=== PATIENT | female | born 1990 | race African-American/Black ===

== ENCOUNTER 2016-11-28 15:27 | Emergency (ER) | payer MEDICAID ==
[~2016-11-28] VITALS: Ht 165.1 cm; Wt 86.2 kg
[~2016-11-28 15:27] MED LIST: ALBUTEROL SULF8.5 GM INH; ALBUTEROL2.5 MG/3 M INH; AZITHROMYCIN250 MG ORAL; DIFLUCAN100 MG ORAL; IBUPROFEN600 MG ORAL; NITROFURANTOIN100 M2 ORAL; NKM; PREDNISONE20 MG ORAL; PROMETHAZINE-D118 ML ORAL; TRAMADOL HCL50 MG ORAL
[2016-11-28] MEDS ORDERED: AMOXICILLIN500 MG ORAL (16:14)
[2016-11-28] MEDS ORDERED: PROMETHAZINE-D118 ML ORAL (16:16)
[2016-11-28 16:26] VITALS: BP 109/74
--- NOTE | 2016-11-28 21:50 | Emergency Room Report ---
History of Present Illness General Chief Complaint: Upper Respiratory Illness Source: Patient Present Illness HPI The pt is a 25 yo F presenting for 2 weeks of productive cough, subjective fever , and chest pain which occurs with coughing only. The pt states sputum is yellow /green. The pt states the pain is an 8/10 dull ache and occurs only with coughing. Pain does not radiate. The pt denies sick contacts or recent travel. Pt denies any other symptoms including N, V, chills, SOB, wheezing, numbness/ tingling Allergies: Coded Allergies: No Known Allergies (Unverified , 05/17/14) Patient History Past Medical History: see triage record Pertinent Family History: none Last Menstrual Period: 09/28/16 Now: No Reviewed Nursing Documentation: PMH: Agreed, PSxH: Agreed Nursing Documentation-PMH Past Medical History: No History, Except For Hx Asthma: Yes Review of Systems All Other Systems: negative except mentioned in HPI Physical Exam Vital Signs Date Time Temp Pulse Resp B/P Pulse Ox O2 Delivery O2 Flow Rate FiO2 11/28/16 15:39 98.1 97 16 102/70 100 Room Air Sp02 EP Interpretation: reviewed, normal General Appearance: no apparent distress, alert, GCS 15, non-toxic Head: normocephalic, atraumatic Eyes: bilateral eye PERRL, bilateral eye normal inspection ENT: tonsillar swelling, pharyngeal erythema, tonsillar exudate Neck: full range of motion, supple/symm/no masses Respiratory: chest non-tender, lungs clear, normal breath sounds, no wheezing, speaking full sentences Cardiovascular #1: regular rate, rhythm, no edema Genitourinary: normal inspection, no CVA tenderness Musculoskeletal: back normal, gait/station normal, normal range of motion, non- tender Neurologic: alert, oriented x3, responsive, motor strength/tone normal, sensory intact, speech normal Psychiatric: judgement/insight normal, memory normal, mood/affect normal, no suicidal/homicidal ideation Skin: normal color, no rash, warm/dry, well hydrated Lymphatic: adenopathy - cervical Medical Decision Making PA Attestation Dr. Randolph is my supervising physician. Patient management was discussed with my supervising physician Diagnostic Impression: Primary Impression: Pharyngitis, acute ER Course The pt is a 25 yo F presenting for 2 weeks of productive cough, subjective fever Differential diagnosis include but not limited to pharyngitis, sinusitis, AOM, bronchitis, PNA Physical exam: Vitals within normal limits. Afebrile. No apparent distress HEENT exam: There is bilateral tonsillar edema, erythema, and exudate. Uvula midline. Moist mucous membranes. There is bilateral cervical lymphadenopathy. Lungs are clear to auscultation bilaterally Skin is warm and dry. No rash The patient will be discharged home with a prescription for cough medication and amoxicillin and is given ER precautions. Patient will followup with primary care Last Vital Signs Date Time Temp Pulse Resp B/P Pulse Ox O2 Delivery O2 Flow Rate FiO2 11/28/16 16:26 95 14 109/74 99 Room Air 11/28/16 16:26 97.7 Status: improved Disposition: HOME, SELF-CARE Condition: Improved Scripts D-Methorphan Hb/Prometh Hcl* (PROMETHAZINE-DM SYRUP*) 118 Ml Syrup 5 ML ORAL Q6H Y for For Cough, #118 ML 0 Refills Prov: IDANIA SERNA 11/28/16 Amoxicillin* (AMOXIL*) 500 Mg Capsule 500 MG ORAL Q12HR, #20 CAP Prov: IDANIA SERNA.A. 11/28/16 Referrals: NON PHYSICIAN (PCP) Patient Instructions: Upper Respiratory Infection, Adult Additional Instructions: I discussed my findings with the patient. All questions and concerns have been answered. Treatment and medication compliance have been addressed. I advised the patient that they need to follow up with PMD in 3-5 days. Return to ED if pain remains or worsens, cough worsens or remains, you notice blood in your sputum, you notice wheezing, you experience a fever, or if needed for any reason. Patient verbalized understanding of discharge instructions. IDANIA SERNA Nov 28, 2016 21:50
== END 2016-11-28 16:26 | disposition home or self-care (01) ==
LOC: EMR 16:10
DX: J02.9 Acute pharyngitis, unspecified (principal); J45.909 Unspecified asthma, uncomplicated
CPT/HCPCS: 99284

== ENCOUNTER 2017-02-13 15:54 | Emergency (ER) | payer MEDICAID ==
[~2017-02-13] VITALS: Ht 165.1 cm; Wt 86.6 kg
[~2017-02-13 15:54] MED LIST changes: +AMOXICILLIN500 MG ORAL
[2017-02-13 16:10] VITALS: BP 99/56
[2017-02-13] MEDS ORDERED: PredniSONE 20mg tab ORAL ONE (16:15)
[2017-02-13] MEDS ORDERED: Ipratropium 0.02% Inh Soln 2.5ml UD HHN ONE (16:15)
[2017-02-13] MEDS ORDERED: Albuterol ud Inhalation HHN ONE (16:15)
[2017-02-13] MEDS ORDERED: ALBUTEROL2.5 MG/3 M INH (16:56)
[2017-02-13] MEDS ORDERED: TESSALON PERLE100 MG ORAL (16:56)
[2017-02-13] MEDS ORDERED: PREDNISONE20 MG ORAL (16:56)
[2017-02-13] MEDS ORDERED: IBUPROFEN600 MG ORAL (16:56)
[2017-02-13 17:15] VITALS: BP 121/52
--- NOTE | 2017-02-13 21:34 | Emergency Room Report ---
History of Present Illness General Chief Complaint: Dyspnea/Respdistress Source: Patient Present Illness HPI The patient is a 26-year-old female with a history of asthma presenting for shortness of breath, cough, chest pain, and back pain for the past week. Pain only occurs with coughing. She has tried albuterol at home which has not helped. Pain is a 10 out of 10 dull ache with cough and does not radiate. She denies recent travel or sick contacts. She denies any other symptoms including fever, chills, productive cough, rash Allergies: Coded Allergies: No Known Allergies (Unverified , 05/17/14) Patient History Past Medical History: see triage record Pertinent Family History: none Last Menstrual Period: 01/18/17 Now: No Reviewed Nursing Documentation: PMH: Agreed, PSxH: Agreed Nursing Documentation-PMH Hx Asthma: Yes Review of Systems All Other Systems: negative except mentioned in HPI Physical Exam Vital Signs Date Time Temp Pulse Resp B/P Pulse Ox O2 Delivery O2 Flow Rate FiO2 02/13/17 16:04 97.9 86 15 100/72 100 Room Air Sp02 EP Interpretation: reviewed, normal General Appearance: no apparent distress, alert, GCS 15, non-toxic Head: normocephalic, atraumatic Eyes: bilateral eye PERRL, bilateral eye normal inspection ENT: hearing grossly normal, normal pharynx, no angioedema, normal voice, uvula midline Neck: full range of motion, supple/symm/no masses Respiratory: chest non-tender, no respiratory distress, no accessory muscle use , decreased breath sounds, wheezing - diffuse Cardiovascular #1: regular rate, rhythm, no edema Gastrointestinal: normal bowel sounds, non tender, soft, non-distended, no guarding, no rebound Musculoskeletal: back normal, gait/station normal, normal range of motion, non- tender Neurologic: alert, oriented x3, responsive, motor strength/tone normal, sensory intact, speech normal Psychiatric: judgement/insight normal, memory normal, mood/affect normal, no suicidal/homicidal ideation Skin: normal color, no rash, warm/dry, well hydrated Lymphatic: no adenopathy Medical Decision Making PA Attestation Dr. reaves is my supervising physician. Patient management was discussed with my supervising physician Diagnostic Impression: Primary Impression: Asthma Qualified Codes: J45.901 - Unspecified asthma with (acute) exacerbation ER Course The patient is a 26-year-old female with a history of asthma presenting for wheezing and shortness of breath Differential diagnoses considered but not limited to: Asthma exacerbation, bronchitis, pneumonia, anxiety PE: O2 sat 100% on RA. No resp distress. Afebrile HEENT exam is unremarkable Lungs: Decreased breath sounds and diffuse wheezing The patient is given a breathing treatment and steroids in the emergency department and is feeling better. Lung sounds have improved She'll be discharged home with a prescription for prednisone, albuterol, and cough medication. ER precautions given Last Vital Signs Date Time Temp Pulse Resp B/P Pulse Ox O2 Delivery O2 Flow Rate FiO2 02/13/17 17:15 106 28 121/52 100 02/13/17 16:28 Room Air 02/13/17 16:10 98.5 Status: improved Disposition: HOME, SELF-CARE Condition: Improved Scripts Ibuprofen* (MOTRIN*) 600 Mg Tablet 600 MG ORAL Q8H Y for For Pain, #30 TAB 0 Refills Prov: IDANIA SERNA P.A. 02/13/17 Benzonatate* (TESSALON PERLE*) 100 Mg Capsule 100 MG ORAL THREE TIMES A DAY, #15 PERLE Prov: TERZIANIDANIA P.A. 02/13/17 Albuterol Sulfate* (ALBUTEROL SULFATE HHN*) 2.5 Mg/3 Ml Vial.neb 3 ML INH Q6H Y for Shortness of Breath, #30 EA 0 Refills Prov: TERZIAN,IDANIA P.A. 02/13/17 Prednisone* (PREDNISONE*) 20 Mg Tablet 40 MG ORAL DAILY, #10 TAB Prov: TERZIANIDANIA P.A. 02/13/17 Referrals: NON PHYSICIAN (PCP) Patient Instructions: Asthma, Adult, Asthma Attack Prevention Additional Instructions: I discussed my findings with the patient. All questions and concerns have been answered. Treatment and medication compliance have been addressed. I advised the patient that they need to follow up with PMD in 3-5 days. Return to ED if symptoms worsen, new symptoms arise, or if needed for any reason. Patient verbalized understanding of discharge instructions. IDANIA SERNA Feb 13, 2017 21:34
== END 2017-02-13 17:15 | disposition home or self-care (01) ==
LOC: EMR 16:15
DX: J45.901 Unspecified asthma with (acute) exacerbation (principal)
CPT/HCPCS: 94640; 94664; 99284

== ENCOUNTER 2017-05-16 15:06 | Emergency (ER) | payer MEDICAID ==
[~2017-05-16] VITALS: Ht 167.6 cm; Wt 86.2 kg
[~2017-05-16 15:06] MED LIST changes: +TESSALON PERLE100 MG ORAL
[2017-05-16 16:17] LABS: BASOPHILS % (AUTO) 0.7 % (0.0-2.0); LYMPHOCYTES % (AUTO) 31.1 % (20.0-45.0); MEAN CORPUSCULAR HEMOGLOBIN 30.4 PG (27.0-31.0); MEAN CORPUSCULAR HGB CONC 34.6 G/DL (32.0-36.0); MEAN CORPUSCULAR VOLUME 88 FL (80-99); MEAN PLATELET VOLUME 11.7 FL (6.5-10.1); MONOCYTES % (AUTO) 4.2 % (1.0-10.0); PLATELET COUNT 227 K/UL (150-450); RED BLOOD COUNT 4.19 M/UL (4.20-5.40); RED CELL DISTRIBUTION WIDTH 12.8 % (11.6-14.8); WHITE BLOOD COUNT 10.8 K/UL (4.8-10.8)
[2017-05-16 16:32] LABS: ALANINE AMINOTRANSFERASE 13 U/L (3-33); ANION GAP 12 (5-15); ASPARTATE AMINO TRANSFERASE 28 U/L (5-40); CALCIUM 8.7 mg/dL (8.6-10.2); CARBON DIOXIDE 21 mEQ/L (20-30); CHLORIDE 104 mEQ/L (98-107); CREATININE 0.8 mg/dL (0.5-0.9); GLOMERULAR FILTRATION RATE > 60 mL/min (>60); HEMOLYSIS 337; POTASSIUM 5.7 mEQ/L (3.4-4.9); SODIUM 137 mEQ/L (135-145); TOTAL PROTEIN 7.2 g/dL (6.6-8.7)
[2017-05-16 16:33] LABS: APPEARANCE,URINE CLEAR; KETONES,URINE NEGATIVE (NEGATIVE); LEUKOCYTE ESTERASE ,URINE NEGATIVE (NEGATIVE); NITRITE,URINE NEGATIVE (NEGATIVE); PH,URINE 8 (4.5-8.0); PROTEIN,URINE NEGATIVE (NEGATIVE); UROBILINOGEN,URINE NORMAL MG/DL (0.0-1.0)
--- NOTE | 2017-05-16 16:37 | Diagnostic Imaging Report ---
Indication: Dizziness Technique: Contiguous 5 mm thick transaxial imaging of the head obtained in a Siemens Sensation [address] scanner. Soft tissue and bone windows generated. Total Dose length Product (DLP): [address] Dose Index Volume (CTDIvol): 70.38, 0.15 mGy Comparison: none Findings: The size and configuration of the cortical sulci, basal cisterns, and ventricles are within normal limits for age. There is no mass effect, midline shift, or edema identified. There is no evidence of acute hemorrhage or abnormal intra-axial or extra-axial fluid collections. The bones and soft tissues are unremarkable. Impression: No mass effect, edema or acute bleed. The CT scanner at [facility] is accredited by the [employer] and the scans are performed using dose optimization techniques as appropriate to a performed exam including Automatic Exposure control.
[2017-05-16] MEDS ORDERED: Albuterol ud Inhalation HHN ONE (16:45)
[2017-05-16 17:45] VITALS: BP 108/68
[2017-05-16 18:25] LABS: ANION GAP 15 (5-15); CALCIUM 8.2 mg/dL (8.6-10.2); CARBON DIOXIDE 19 mEQ/L (20-30); CHLORIDE 105 mEQ/L (98-107); CREATININE 0.8 mg/dL (0.5-0.9); GLOMERULAR FILTRATION RATE > 60 mL/min (>60); HEMOLYSIS 8; POTASSIUM 3.2 mEQ/L (3.4-4.9); SODIUM 139 mEQ/L (135-145)
[2017-05-16] MEDS ORDERED: CORTISPORIN EAR10 ML RIGHT EAR (18:48)
[2017-05-16] MEDS ORDERED: IBUPROFEN600 MG ORAL (18:48)
[2017-05-16 18:52] VITALS: BP 108/68
--- NOTE | 2017-05-16 21:05 | Emergency Room Report ---
History of Present Illness General Chief Complaint: Dizziness Source: Patient Present Illness HPI The patient is a 26-year-old female with a history of asthma presenting for 2 weeks of dizziness. She states that one week prior, she felt faint and fell to the ground and lost consciousness. She is unsure of how long she was unconscious for. She is not sure she hit her head. She states that she has not been seen for this. This began for no known reason. She describes this as intermittent feelings as if the room is spinning. She also describes right ear pain described as an 8/10 dull ache and is worse with touch. She denies any discharge from the ear. She denies other symptoms including fever, chills, neck pain or stiffness, chest pain, shortness of breath, nausea, vomiting, rash Allergies: Coded Allergies: No Known Allergies (Unverified , 05/17/14) Patient History Past Medical History: see triage record Pertinent Family History: none Last Menstrual Period: 04/20/2017 Now: No Reviewed Nursing Documentation: PMH: Agreed, PSxH: Agreed Nursing Documentation-PMH Hx Asthma: Yes Review of Systems All Other Systems: negative except mentioned in HPI Physical Exam Vital Signs Date Time Temp Pulse Resp B/P (MAP) Pulse Ox O2 Delivery O2 Flow Rate FiO2 05/16/17 15:16 97.3 75 110/74 100 Room Air 05/16/17 16:55 20 Sp02 EP Interpretation: reviewed, normal General Appearance: no apparent distress, alert, GCS 15, non-toxic Head: normocephalic, atraumatic Eyes: bilateral eye normal inspection, bilateral eye PERRL ENT: hearing grossly normal, normal pharynx, no angioedema, normal voice, other - R EAC edema and erythema with TTP to tragus Neck: full range of motion, supple/symm/no masses Respiratory: chest non-tender, lungs clear, normal breath sounds, speaking full sentences Cardiovascular #1: regular rate, rhythm, no edema Gastrointestinal: normal bowel sounds, non tender, soft, non-distended, no guarding, no rebound Genitourinary: normal inspection, no CVA tenderness Musculoskeletal: back normal, gait/station normal, normal range of motion, non- tender Neurologic: alert, oriented x3, responsive, motor strength/tone normal, sensory intact, speech normal Psychiatric: judgement/insight normal, memory normal, mood/affect normal, no suicidal/homicidal ideation Skin: normal color, no rash, warm/dry, well hydrated Lymphatic: no adenopathy Medical Decision Making PA Attestation Dr. Randolph is my supervising physician. Patient management was discussed with my supervising physician Diagnostic Impression: Primary Impression: Hyperkalemia Additional Impression: Otitis externa Qualified Codes: H60.501 - Unspecified acute noninfective otitis externa, right ear ER Course The patient is a 26-year-old female with a history of asthma presenting for 2 weeks of dizziness. Differential diagnoses include but not limited to Migraine, Dehydration, arrhythmia, depression, BPPV, otitis media, otitis externa, electrolyte imbalance, among others Physical exam: afebrile. No apparent distress Head is normocephalic atraumatic. HEENT exam reveals right external auditory canal edema and exudate with tenderness over the tragus. No cervical lymphadenopathy. No nystagmus. Lungs are clear to auscultation bilaterally RRR Skin is warm and dry. Normal turgor Labs are unremarkable except for isolated hyperkalemia at 5.7 which was said to be not hemolyzed. CT head unremarkable. The patient is given albuterol nebulizer and BMP shows significant decrease of potassium. The patient will be treated for otitis externa and needs to follow up with primary doctor. ER precautions are given Laboratory Tests Test 05/16/17 15:45 05/16/17 17:45 White Blood Count 10.8 K/UL (4.8-10.8) Red Blood Count 4.19 M/UL (4.20-5.40) L Hemoglobin 12.7 G/DL (12.0-16.0) Hematocrit 36.7 % (37.0-47.0) L Mean Corpuscular Volume 88 FL (80-99) Mean Corpuscular Hemoglobin 30.4 PG (27.0-31.0) Mean Corpuscular Hemoglobin Concent 34.6 G/DL (32.0-36.0) Red Cell Distribution Width 12.8 % (11.6-14.8) Platelet Count 227 K/UL (150-450) Mean Platelet Volume 11.7 FL (6.5-10.1) H Neutrophils (%) (Auto) 62.0 % (45.0-75.0) Lymphocytes (%) (Auto) 31.1 % (20.0-45.0) Monocytes (%) (Auto) 4.2 % (1.0-10.0) Eosinophils (%) (Auto) 2.0 % (0.0-3.0) Basophils (%) (Auto) 0.7 % (0.0-2.0) Urine Color Pale yellow Urine Appearance Clear Urine pH 8 (4.5-8.0) Urine Specific [place] 1.010 (1.005-1.035) Urine Protein Negative (NEGATIVE) Urine Glucose (UA) Negative (NEGATIVE) Urine Ketones Negative (NEGATIVE) Urine Occult Blood Negative (NEGATIVE) Urine Nitrite Negative (NEGATIVE) Urine Bilirubin Negative (NEGATIVE) Urine Urobilinogen Normal MG/DL (0.0-1.0) Urine Leukocyte Esterase Negative (NEGATIVE) Urine HCG, Qualitative Negative Sodium Level 137 mEQ/L (135-145) 139 mEQ/L (135-145) Potassium Level 5.7 mEQ/L (3.4-4.9) H 3.2 mEQ/L (3.4-4.9) L Chloride Level 104 mEQ/L (98-107) 105 mEQ/L (98-107) Carbon Dioxide Level 21 mEQ/L (20-30) 19 mEQ/L (20-30) L Anion Gap 12 (5-15) 15 (5-15) Blood Urea Nitrogen 13 mg/dL (7-23) 14 mg/dL (7-23) Creatinine 0.8 mg/dL (0.5-0.9) 0.8 mg/dL (0.5-0.9) Estimate Glomerular Filtration Rate > 60 mL/min (>60) > 60 mL/min (>60) Glucose Level 87 mg/dL (74-106) 94 mg/dL (74-106) Calcium Level 8.7 mg/dL (8.6-10.2) 8.2 mg/dL (8.6-10.2) L Total Bilirubin 0.2 mg/dL (0.0-1.2) Aspartate Amino Transferase (AST) 28 U/L (5-40) Alanine Aminotransferase (ALT) 13 U/L (3-33) Alkaline Phosphatase 44 U/L (35-104) Total Protein 7.2 g/dL (6.6-8.7) Albumin 3.7 g/dL (3.5-5.2) Globulin 3.5 g/dL Albumin/Globulin Ratio 1.0 (1.0-2.7) Lab Results Impression All labs unremarkable except for potassium of 5.7 EKG Diagnostic Results EP Interpretation: NSR. No peaked T waves Rate: normal - 64 Rhythm: NSR ST Segments: no acute changes ASA given to the pt in ED: No PA Scribe Text EKG was reviewed and read with my supervising physician. No acute ST segment changes are seen. Normal rate and rhythm. No acute changes. CT/MRI/US Diagnostic Results CT/MRI/US Diagnostic Results : Imaging Test Ordered: CT head Impression Unremarkable Last Vital Signs Date Time Temp Pulse Resp B/P (MAP) Pulse Ox O2 Delivery O2 Flow Rate FiO2 05/16/17 18:52 86 16 108/68 96 Room Air 05/16/17 17:45 97.8 Status: improved Disposition: HOME, SELF-CARE Condition: Improved Scripts Ibuprofen* (MOTRIN*) 600 Mg Tablet 600 MG ORAL Q8H Y for For Pain, #30 TAB 0 Refills Prov: IDANIA SERNAAManish 05/16/17 Neomycin/Polymyxin B Sulf/Hc* (CORTISPORIN EAR SOLUTION*) 10 Ml Solution 4 DROP RIGHT EAR QID, #10 ML 0 Refills Prov: IDANIA SERNA.A. 05/16/17 Patient Instructions: Otitis Externa, Hyperkalemia Additional Instructions: I discussed my findings with the patient. All questions and concerns have been answered. Treatment and medication compliance have been addressed. I advised the patient that they need to follow up with PMD in 3-5 days. Return to ED if symptoms worsen, new symptoms arise, or if needed for any reason. Patient verbalized understanding of discharge instructions. IDANIA SERNA May 16, 2017 21:05
--- NOTE | 2017-05-19 18:44 | Cardiology Report ---
APPROVED REPORT EKG Measurement Heart [id number] Normal sinus rhythm Normal ECG
== END 2017-05-16 18:52 | disposition home or self-care (01) ==
LOC: EMR 15:27
DX: E87.5 Hyperkalemia (principal); H60.91 Unspecified otitis externa, right ear; R42 Dizziness and giddiness; J45.909 Unspecified asthma, uncomplicated
CPT/HCPCS: 36415; 70450; 80048; 80053; 81003; 81025; 85025; 93005; 94640; 94664; 96361; 96374; 99284

== ENCOUNTER 2017-05-26 15:34 | Emergency (ER) | payer MEDICAID ==
[~2017-05-26] VITALS: Ht 167.6 cm; Wt 87.1 kg
[~2017-05-26 15:34] MED LIST changes: +CORTISPORIN EAR10 ML RIGHT EAR
[2017-05-26] MEDS ORDERED: ALBUTEROL SULF8.5 GM INH (16:15)
--- NOTE | 2017-05-26 16:32 | Emergency Room Report ---
History of Present Illness General Chief Complaint: Sore Throat Source: Patient Present Illness HPI 26 YO Female presents to the ED c/o : sore throat with 10/10 in severity pain, tonsillar swelling with fevers x 2 days , Pt. also has had right ear pain x 2 weeks. pt. finished course of otic abx however no relief of her ear symptoms. Denies cough, neck pain or stiffness, rhinorrhea. Denies recent travel or ill contacts. Pt has been taking advil for pain and fevers. denies abdominal pain or rashes. Denies CP, Palpitations, LOC, AMS, dizziness, Changes in Vision, Sensation, paresthesias, or a sudden severe headache. Allergies: Coded Allergies: No Known Allergies (Unverified , 05/17/14) Patient History Past Medical History: see triage record Past Surgical History: none Pertinent Family History: none Last Menstrual Period: "IUD" Now: No Immunizations: UTD Reviewed Nursing Documentation: PMH: Agreed, PSxH: Agreed Nursing Documentation-PMH Hx Asthma: Yes Review of Systems All Other Systems: negative except mentioned in HPI Physical Exam Vital Signs Date Time Temp Pulse Resp B/P (MAP) Pulse Ox O2 Delivery O2 Flow Rate FiO2 05/26/17 16:10 98.2 96 16 108/72 100 Room Air Sp02 EP Interpretation: reviewed, normal General Appearance: alert, GCS 15, non-toxic, mild distress Head: normocephalic, atraumatic Eyes: bilateral eye normal inspection, bilateral eye PERRL ENT: hearing grossly normal, normal pharynx, no angioedema, normal voice, TMs + canals normal - right TM is erythematous and bulging, the canal is WNL, no d/ c no tenderness. , uvula midline, nasal congestion, tonsillar swelling, pharyngeal erythema, tonsillar exudate Neck: full range of motion, no meningismus, supple/symm/no masses Respiratory: lungs clear, normal breath sounds, no wheezing, speaking full sentences Cardiovascular #1: regular rate, rhythm, no edema Gastrointestinal: normal bowel sounds, non tender, soft, no guarding, no rebound Rectal: deferred Genitourinary: normal inspection, no CVA tenderness Musculoskeletal: back normal, gait/station normal, normal range of motion, non- tender Neurologic: alert, oriented x3, responsive, motor strength/tone normal, sensory intact, speech normal Psychiatric: judgement/insight normal, memory normal, mood/affect normal Skin: normal color, no rash, warm/dry, well hydrated Lymphatic: no adenopathy Medical Decision Making PA Attestation Dr. Randolph is my supervising Physician whom patient management has been discussed with. Diagnostic Impression: Primary Impression: Otitis media Qualified Codes: H66.001 - Acute suppurative otitis media without spontaneous rupture of ear drum, right ear Additional Impressions: ACUTE PHARYNGITIS, UNSPECIFIED Pharyngitis, acute Qualified Codes: J02.0 - Streptococcal pharyngitis ER Course 26 YO Female presents to the ED c/o : sore throat with 10/10 in severity pain, tonsillar swelling with fevers x 2 days , Pt. also has had right ear pain x 2 weeks. pt. finished course of otic abx however no relief of her ear symptoms. Denies cough, neck pain or stiffness, rhinorrhea. Denies recent travel or ill contacts. Pt has been taking advil for pain and fevers. denies abdominal pain or rashes. Denies CP, Palpitations, LOC, AMS, dizziness, Changes in Vision, Sensation, paresthesias, or a sudden severe headache. Ddx considered but are not limited to: pharyngitis, strep, [employer], ludwigs angina, URI Vital signs: are WNL, pt. is afebrile H&PE are most consistent with: pharyngitis presumed strep, moderate tonsillar swelling with exudates. with right otitis media. ORDERS: None required at this time as the diagnosis is clinical ED INTERVENTIONS: -Decadron 8mg IM DISCHARGE: At this time pt. is stable for d/c to home. Will provide printed patient care instructions, and any necessary prescriptions. Care plan and follow up instructions have been discussed with the patient prior to discharge. Last Vital Signs Date Time Temp Pulse Resp B/P (MAP) Pulse Ox O2 Delivery O2 Flow Rate FiO2 05/26/17 16:10 98.2 96 16 108/72 100 Room Air Disposition: HOME, SELF-CARE Condition: Stable Scripts Lidocaine HCl 2% Viscous (Lidocaine HCl 2% Viscous) 100 Ml Solution 15 ML ORAL QID, #200 ML Prov: Mariann Vides.AManish 05/26/17 Ibuprofen* (MOTRIN*) 600 Mg Tablet 600 MG ORAL THREE TIMES A DAY, #30 TAB 0 Refills Prov: Mariann Vides 05/26/17 Amoxicillin* (AMOXIL*) 500 Mg Capsule 500 MG ORAL BID for 10 Days, #20 CAP Prov: Mariann Vides 05/26/17 Patient Instructions: Otitis Media, Adult, [id number], Strep Throat, Easy-to- Read Additional Instructions: Take medications as directed. Follow up with a Primary Care Provider in 3-5 days, even if your symptoms have resolved. --Please review list of primary care clinics, if you do not already have a primary care provider Return sooner to ED if new symptoms occur, or current symptoms become worse. - Please note that this Emergency Department Report was dictated using [employer] machinery mechanic technology software, occasionally this can lead to erroneous entry secondary to interpretation by the dictation equipment. Mariann Vides May 26, 2017 16:32
[2017-05-26] MEDS ORDERED: IBUPROFEN600 MG ORAL (16:44)
[2017-05-26] MEDS ORDERED: AMOXICILLIN500 MG ORAL (16:44)
[2017-05-26] MEDS ORDERED: LIDOCAINE VISC100 ML ORAL (16:44)
[2017-05-26] MEDS ORDERED: Dexamethasone 4mg/ml vial IM ONE (16:45)
[2017-05-26 16:58] VITALS: BP 113/76
[2017-05-26 16:59] VITALS: BP 113/76
== END 2017-05-26 16:59 | disposition home or self-care (01) ==
LOC: EMR 16:45
DX: H66.001 Acute suppurative otitis media without spontaneous rupture of ear drum, right ear (principal); J02.9 Acute pharyngitis, unspecified; J02.0 Streptococcal pharyngitis
CPT/HCPCS: 96372; 99284; J1100

== ENCOUNTER 2017-09-01 22:14 | Emergency (ER) | payer MEDICAID ==
[~2017-09-01] VITALS: Ht 165.1 cm; Wt 88.5 kg
[~2017-09-01 22:14] MED LIST changes: +LIDOCAINE VISC100 ML ORAL
[2017-09-01] MEDS ORDERED: Ipratropium 0.02% Inh Soln 2.5ml UD HHN ONE (23:00)
[2017-09-01] MEDS ORDERED: Azithromycin 250mg tab PO ONE (23:00)
[2017-09-01] MEDS: Albuterol ud Inhalation HHN SCH ×2 (23:32→23:36)
--- NOTE | 2017-09-02 00:09 | Emergency Room Report ---
History of Present Illness General Chief Complaint: Upper Respiratory Illness Source: Patient Present Illness HPI Patient with 3 - 4 days of URI and exacerbation of asthma. Fevers. Mildly productive phlegm. No flu vaccination. Chest pain and sore throat = 9/10 - more pleuritic. Moderate CASTRO with wheezing. Use of albuterol at home and taking tylenol to control the fevers - moderately help with pain. Not taking steroids now but has in past. Not worst attack, never intubated. Not . No dysuria. No NVD. Some myalgias and arthralgias. Mild ZHANG. Here with son who is also ill with URI. Allergies: Coded Allergies: Shrimp (Verified Allergy, Unknown, 09/01/17) Patient History Past Medical History: see triage record Social History: Reports: smoking - prior - not now Social History Narrative with son Last Menstrual Period: 08/20/17 Now: No : 1 Para: 1 Nursing Documentation-[facility] Past Medical History: No History, Except For Hx Asthma: Yes Review of Systems All Other Systems: negative except mentioned in HPI Physical Exam Vital Signs Date Time Temp Pulse Resp B/P (MAP) Pulse Ox O2 Delivery O2 Flow Rate FiO2 09/01/17 22:35 98.2 105 14 112/63 98 Room Air 09/01/17 23:20 21 Sp02 EP Interpretation: reviewed, normal General Appearance: no apparent distress, GCS 15, other - looks ill Head: normocephalic Eyes: bilateral eye normal inspection, bilateral eye PERRL ENT: moist mucus membranes, pharyngeal erythema Neck: supple Respiratory: wheezing, expiration Cardiovascular #1: tachycardia Cardiovascular #2: 2+ radial (R) Gastrointestinal: normal inspection, normal bowel sounds, non tender, no mass, non-distended, overweight Musculoskeletal: back normal, gait/station normal, normal range of motion, no calf tenderness Neurologic: alert, oriented x3, grossly normal Psychiatric: mood/affect normal Skin: normal inspection, warm/dry Medical Decision Making Diagnostic Impression: Primary Impression: Asthma Qualified Codes: J45.41 - Moderate persistent asthma with (acute) exacerbation Additional Impression: Bronchitis ER Course Patient with h/o asthma with URI and bronchospasm. DDx: pneumonia, bronchitis, viral URI amongst others. CXR indicated. Also breathing treatment and steroids also indicated. Oral prednisone and antibiotics begun. CXR without infiltrate. Patient improved with treatment. Patient stable for outpatient observation and treatment. Chest X-Ray Diagnostic Results Chest X-Ray Diagnostic Results : Chest X-Ray Ordered: Yes # of Views/Limited/Complete: 1 View Indication: Shortness of Breath Interpretation: no consolidation, no effusion, no pneumothorax, no acute cardiopulmonary disease Impression: No acute disease Electronically Signed by: Electronically signed by Rangel Tineo MD Last Vital Signs Date Time Temp Pulse Resp B/P (MAP) Pulse Ox O2 Delivery O2 Flow Rate FiO2 09/02/17 00:40 97.4 102 18 144/98 100 Room Air 21 Status: improved Disposition: HOME, SELF-CARE Condition: Improved Scripts Acetaminophen (Tylenol) 325 Mg Tablet 650 MG ORAL Q6H Y for Prn Pain/Headache/Temp > 101, #20 TAB 0 Refills Prov: Rangel Tineo M.D. 09/02/17 Prednisone* (PREDNISONE*) 20 Mg Tablet 40 MG ORAL DAILY, #10 TAB Prov: Rangel Tineo M.D. 09/02/17 Albuterol Sulfate* (ALBUTEROL SULFATE HHN*) 2.5 Mg/3 Ml Vial.neb 2.5 MG HHN Q4H Y for Shortness of Breath, #25 VIAL 2 Refills Prov: Rangel Tineo M.D. 09/02/17 Albuterol Sulfate* (ALBUTEROL SULFATE MDI*) 8.5 Gm Hfa.aer.ad 2 PUFF INH Q6H, #1 EA 1 Refill Prov: Rangel Tineo M.D. 09/02/17 Azithromycin* (ZITHROMAX*) 250 Mg Tablet 250 MG ORAL 2 first day then 1qd, #6 TAB 0 Refills Take two tables once daily for 1 day, then one tablet once daily for 4 days. Prov: Rangel Tineo M.D. 09/02/17 Referrals: NON PHYSICIAN (PCP) Rangel Tineo M.D. Sep 02, 2017 00:09
[2017-09-02] MEDS ORDERED: PREDNISONE20 MG ORAL (00:12)
[2017-09-02] MEDS ORDERED: ALBUTEROL SULF8.5 GM INH (00:12)
[2017-09-02] MEDS ORDERED: ZITHROMAX250 MG ORAL (00:12)
[2017-09-02] MEDS ORDERED: TYLENOL325 MG ORAL (00:12)
[2017-09-02] MEDS ORDERED: ALBUTEROL2.5 MG/3 M HHN (00:12)
[2017-09-02 00:32] VITALS: BP 144/98
[2017-09-02 00:40] VITALS: BP 144/98
--- NOTE | 2017-09-02 12:15 | Diagnostic Imaging Report ---
Indication: Dyspnea Comparison: 05/17/2014 A single view chest radiograph was obtained. Findings: Cardiomediastinal appearance is within normal limits for age. Pulmonary vascularity is appropriate. The diaphragmatic contour is smooth and costophrenic angles are sharp. No pleural effusions are identified. The bones are unremarkable. Impression: No acute findings
== END 2017-09-02 00:40 | disposition home or self-care (01) ==
LOC: EMR 23:16
DX: J45.901 Unspecified asthma with (acute) exacerbation (principal); Z91.013 Allergy to seafood; Z87.891 Personal history of nicotine dependence
CPT/HCPCS: 71010; 94640; 94664; 99284; J7512; Q0144

== ENCOUNTER 2017-10-23 14:22 | Emergency (ER) | payer MEDICAID ==
[~2017-10-23] VITALS: Ht 165.1 cm; Wt 97.5 kg
[~2017-10-23 14:22] MED LIST changes: +ALBUTEROL2.5 MG/3 M HHN; +TYLENOL325 MG ORAL; +ZITHROMAX250 MG ORAL
[2017-10-23 14:37] VITALS: BP 111/70
[2017-10-23 15:03] VITALS: BP 111/70
--- NOTE | 2017-10-24 14:44 | Emergency Room Report ---
History of Present Illness General Chief Complaint: General Complaint Source: Patient Present Illness Allergies: Coded Allergies: Shrimp (Verified Allergy, Unknown, 09/01/17) Patient History Last Menstrual Period: 10/09/2017 Nursing Documentation-[facility] Past Medical History: No History, Except For Hx Asthma: Yes Physical Exam Vital Signs Date Time Temp Pulse Resp B/P (MAP) Pulse Ox O2 Delivery O2 Flow Rate FiO2 10/23/17 14:37 98.1 99 15 111/70 99 Room Air 98.1 Medical Decision Making Diagnostic Impression: Primary Impression: Problem ER Course Of note, I was NOT on duty at this time, 310pm when patient allegedly left the ED. My shift ended at 230pm. I never saw or evaluated patient. I was never told of this patient during her arrival or stay in ED. Last Vital Signs Date Time Temp Pulse Resp B/P (MAP) Pulse Ox O2 Delivery O2 Flow Rate FiO2 10/23/17 15:03 98.1 99 15 111/70 99 Room Air Disposition: LEFT W/OUT BEING SEEN Condition: Unknown Referrals: NOT CHOSEN [facility]/,REFERRING (PCP) MELLY MCGOWAN M.D. Oct 24, 2017 14:44
== END 2017-10-23 15:10 | disposition left against medical advice (07) ==
LOC: EMR 15:00
DX: Z04.41 Encounter for examination and observation following alleged adult rape (principal); Z53.21 Procedure and treatment not carried out due to patient leaving prior to being seen by health care provider
CPT/HCPCS: 99281

== ENCOUNTER 2018-04-18 03:00 | Emergency (ER) | payer MEDICAID ==
[~2018-04-18] VITALS: Ht 165.1 cm; Wt 108.9 kg
[2018-04-18 03:10] VITALS: BP 120/78
[2018-04-18] MEDS ORDERED: IBUPROFEN600 MG ORAL (03:43)
[2018-04-18] MEDS ORDERED: MUPIROCIN22 GM TOPIC (03:43)
[2018-04-18] MEDS ORDERED: BACTRIM DS TAB1 EAC1 ORAL (03:43)
--- NOTE | 2018-04-18 03:43 | Emergency Room Report ---
History of Present Illness General Chief Complaint: Skin Rash/Abscess Source: Patient Present Illness HPI Is a 19-year-old female with history of asthma. She presents with chief complaint of left forearm pain and swelling. She thought it may have been a spider bite. Onset for the last couple days but worse today. Seemed to be spreading. No spider seen. No fever or chills. Pain is 7 out of 10 pain worse with palpation. No drainage. She also complaining of right lower extremity swelling. Getting tight. Hard time putting her shoe on. His been ongoing for several days also. No injury. No abscess or cellulitis. Non- control. No history or family history of thromboembolic event Allergies: Coded Allergies: Shrimp (Verified Allergy, Unknown, 09/01/17) Patient History Past Medical History: see triage record, old chart reviewed, asthma Past Surgical History: none Pertinent Family History: none Social History: Denies: smoking Last Menstrual Period: March Now: No Immunizations: other Reviewed Nursing Documentation: PMH: Agreed; PSxH: Agreed Nursing Documentation-PMH Hx Asthma: Yes Review of Systems Eye: Denies: eye pain, blurred vision ENT: Denies: ear pain, nose congestion, throat swelling Respiratory: Denies: cough, shortness of breath Cardiovascular: Denies: chest pain, palpitations Gastrointestinal: Denies: abdominal pain, diarrhea, nausea, vomiting Musculoskeletal: Denies: back pain, joint pain Skin: Reports: rash Neurological: Denies: headache, numbness Endocrine: Denies: increased thirst, increased urine Hematologic/Lymphatic: Denies: easy bruising All Other Systems: negative except mentioned in HPI Physical Exam Vital Signs Date Time Temp Pulse Resp B/P (MAP) Pulse Ox O2 Delivery O2 Flow Rate FiO2 04/18/18 03:02 97.6 90 18 118/82 96 Room Air 97.5 vitals normal Sp02 EP Interpretation: reviewed, normal General Appearance: well appearing, no apparent distress, alert Head: normocephalic, atraumatic Eyes: bilateral eye PERRL, bilateral eye EOMI ENT: hearing grossly normal, normal pharynx Neck: full range of motion, supple, no meningismus Respiratory: chest non-tender, lungs clear, normal breath sounds Cardiovascular #1: regular rate, rhythm, no murmur Gastrointestinal: normal bowel sounds, non tender, no mass, no organomegaly, no bruit, non-distended Musculoskeletal: back normal, gait/station normal, normal range of motion, other - Left forearm: She has an area of induration and erythema measuring about 4 x 5 cm. Is a small whitish center. No fluctuant area. Full range of motion the wrist and elbow. Radial pulse normal. Psychiatric: mood/affect normal Skin: warm/dry Medical Decision Making Diagnostic Impression: Primary Impression: Cellulitis of forearm, left ER Course Patient with cellulitis of the left forearm. I suspect this may be early MRSA infection. No necrotizing fasciitis. No abscess. I cleaned the skin with Betadine and then local anesthetic with 1% lidocaine. I made a small 1 cm incision. There was no pus expressed. Patient tolerated procedure without a problem. CT/MRI/US Diagnostic Results CT/MRI/US Diagnostic Results : Imaging Test Ordered: RLE US Impression Neg per forms analysis manager Last Vital Signs Date Time Temp Pulse Resp B/P (MAP) Pulse Ox O2 Delivery O2 Flow Rate FiO2 04/18/18 03:10 97.5 78 18 120/78 97 Room Air 97.5 Status: improved Disposition: HOME, SELF-CARE Condition: Stable Scripts Mupirocin* (MUPIROCIN*) 22 Gm Oint...g. 1 APPLIC TOPIC THREE TIMES A DAY, #22 GM Prov: FARHAN QUEEN M.D. 04/18/18 Ibuprofen* (MOTRIN*) 600 Mg Tablet 600 MG ORAL THREE TIMES A DAY, #30 TAB 0 Refills Prov: FARHAN QUEEN M.D. 04/18/18 Trimethoprim/Sulfamethoxazole 160/800* (BACTRIM DS TABLET*) 1 Each Tablet 1 TAB ORAL Q12H, #14 TAB 0 Refills Prov: FARHAN QUEEN M.D. 04/18/18 Referrals: NOT CHOSEN [facility]/,REFERRING (PCP) Additional Instructions: Follow-up with your doctor in 2-3 days for recheck. Return if symptom worsen. FARHAN QUEEN M.D. Apr 18, 2018 03:43
[2018-04-18] MEDS ORDERED: Bactrim-DS 1 tab ORAL ONE (03:45)
[2018-04-18 04:50] VITALS: BP 121/75
--- NOTE | 2018-04-22 23:40 | Diagnostic Imaging Report ---
APPROVED REPORT CPT Code: 41334 Present Symptoms Comments: RIGHT LEG PAIN. RIGHT LEG: Venous imaging reveals a patent deep venous system. There is no evidence of thrombus within the femoral, popliteal or tibial segments. The greater saphenous vein is also within normal limits. Doppler indicates normal spontaneous flow within these segments.
== END 2018-04-18 04:50 | disposition home or self-care (01) ==
LOC: EMR 03:27
DX: L03.114 Cellulitis of left upper limb (principal); J45.909 Unspecified asthma, uncomplicated; Z91.013 Allergy to seafood
CPT/HCPCS: 93971; 99284

== ENCOUNTER 2018-04-23 12:39 | Emergency (ER) | payer MEDICAID ==
[~2018-04-23] VITALS: Ht 165.1 cm; Wt 95.3 kg
[~2018-04-23 12:39] MED LIST changes: +BACTRIM DS TAB1 EAC1 ORAL; +MUPIROCIN22 GM TOPIC
[2018-04-23 12:58] VITALS: BP 100/63
--- NOTE | 2018-04-23 13:10 | Emergency Room Report ---
History of Present Illness General Chief Complaint: Skin Rash/Abscess Source: Patient Present Illness HPI 27-year-old female patient presents ER complaining of vomiting and diarrhea for the past 2 days. Reports she was previously seen at the ER a week ago for cellulitis and treated with Bactrim, denies symptoms since that time, reports cellulitis is healing well. Reports that diarrhea has been watery, denies blood in emesis or stool. Denies contacts with similar symptoms. Denies recent travel outside the states. Denies fever, chest pain, shortness of breath. States does not know status. Denies dysuria, hematuria, vaginal discharge.reports allergy to shrimp, states that she ate shrimp prior to arrival at the ER, denies new foods in diet. Reports that does not require to carry an EpiPen for allergy to shrimp, states he usually gets tongue and throat itchiness. Denies tongue swelling. Allergies: Coded Allergies: Shrimp (Verified Allergy, Unknown, 09/01/17) Patient History Past Medical History: see triage record Now: No Reviewed Nursing Documentation: PMH: Agreed; PSxH: Agreed Nursing Documentation-[facility] Past Medical History: No History, Except For Hx Asthma: Yes Review of Systems All Other Systems: negative except mentioned in HPI Physical Exam Vital Signs Date Time Temp Pulse Resp B/P (MAP) Pulse Ox O2 Delivery O2 Flow Rate FiO2 04/23/18 12:48 98.0 107 20 100/63 98 Room Air 98.1 Sp02 EP Interpretation: reviewed, normal General Appearance: well appearing, no apparent distress, alert, GCS 15, non- toxic Head: normocephalic, atraumatic Eyes: bilateral eye normal inspection, bilateral eye PERRL ENT: hearing grossly normal, normal pharynx, no angioedema, normal voice, TMs + canals normal, uvula midline, moist mucus membranes, other - no tongue swelling, speaking full sentences Neck: full range of motion Respiratory: lungs clear, normal breath sounds, no rhonchi, no respiratory distress, no accessory muscle use, no wheezing, speaking full sentences Cardiovascular #1: regular rate, rhythm, no edema Gastrointestinal: non tender, soft, no mass, non-distended, no guarding, no rebound, other - negative Reyes, negative Rovsing, negative obturator Genitourinary: no CVA tenderness Musculoskeletal: back normal, digits/nails normal, gait/station normal, normal range of motion, non-tender Psychiatric: mood/affect normal Skin: no rash, other - 2 mm scab noted at previous site of cellulitis, no signs of infection, no erythema or edema, no no red streaking Lymphatic: no adenopathy Medical Decision Making PA Attestation Dr. Batres is my supervising Physician whom patient management has been discussed with. Diagnostic Impression: Primary Impression: Vomiting and diarrhea ER Course Pt. presents to the ED c/o vomiting and diarrhea. Ddx considered but are not limited to viral syndrome, gastritis, enteritis, food poisoning, GERD, reflux., UTI. Vital signs: are WNL, pt. is afebrile, pulse mildly elevated, we will continue to monitor. Ordered medication. ED COURSE: Physical exam benign, no abdominal TTP, negative Reyes sign, negative Rovsing, negative obturator, low suspicion for appendicitis or cholecystitis, does not require labs or imaging at this time. No fever, no blood in stool, no recent travel or hospitalizations, does not require abx treatment at this time. No signs of dehydration, moist mucus membranes, cap refill <2seconds, normal skin turgor. no rash, no signs of cellulitis, not require further treatment antibiotics. Followup with primary care provider. provided with Pepcid for possible allergic reaction symptoms. Reviewed previous patient chart, reviewed area previous cellulitis, appears to be healing well, no signs of erythema or edema, does not require antibiotics at this time. Apply warm compresses. Benadryl for itching symptoms, side effect drowsiness. UA negative, urine negative, low suspicion for UTI, discuss results with patient, does not require antibiotic treatment at this time. Likely viral etiology of symptoms, will provide Zofran in the ER. . Patient instructed on BRAT diet. Patient instructed to remain hydrated, drink plenty of fluids. Patient questions asked and answered. Patient states understanding and agreement to treatment plan. ER precautions given, return to ER for new or worsening of symptoms. patient resting comfortably in bed, in no acute distress, nontoxic appearing. vital stable. Did not eat foods that he was allergic to. Follow with primary care provider and discuss referral to ad operations specialist. DISCHARGE: Rx provided for Benadryl. SE drowsiness, do not take prior to drinking, driving , operating heavy machinery. At this time pt. is stable for d/c to home. Patient is resting comfortably, laughing, in no acute distress, nontoxic appearing. Will provide printed patient care instructions, and any necessary prescriptions. Care plan and follow up instructions have been discussed with the patient prior to discharge. Patient instructed to followup with PCP in 3-5 days. Patient reports understanding and agreement to treatment plan. Patient questions asked and answered. ER precautions given; patient instructed to return to ER for new or worsening of symptoms including but not limited to fever, intractable vomiting, severe abdominal pain, blood in stool. - Please note that this Emergency Department Report was dictated using [employer] language teacher technology software, occasionally this can lead to erroneous entry secondary to interpretation by the dictation equipment. Labs Test 04/23/18 13:20 Urine Color Pale yellow Urine Appearance Slightly cloudy Urine pH 5 (4.5-8.0) Urine Specific [place] 1.020 (1.005-1.035) Urine Protein Negative (NEGATIVE) Urine Glucose (UA) Negative (NEGATIVE) Urine Ketones 1+ (NEGATIVE) Urine Occult Blood 2+ (NEGATIVE) Urine Nitrite Negative (NEGATIVE) Urine Bilirubin Negative (NEGATIVE) Urine Urobilinogen Normal MG/DL (0.0-1.0) Urine Leukocyte Esterase 1+ (NEGATIVE) Urine RBC 5-10 /HPF (0 - 2) Urine WBC 2-4 /HPF (0 - 2) Urine Squamous Epithelial Cells Many /LPF (NONE/OCC) Urine Bacteria Few /HPF (NONE) Urine HCG, Qualitative Negative (NEGATIVE) Last Vital Signs Date Time Temp Pulse Resp B/P (MAP) Pulse Ox O2 Delivery O2 Flow Rate FiO2 04/23/18 12:58 98.1 20 100/63 98 Room Air 98.1 04/23/18 12:48 107 Disposition: HOME, SELF-CARE Condition: Stable Scripts Diphenhydramine Hcl* (BENADRYL*) 25 Mg Capsule 25 MG ORAL QHS, #30 CAP Prov: Clarence Isaacs 04/23/18 Patient Instructions: Diarrhea, Adult, Wyve-xo-Tvlv, Food Allergy, Kznm-kp-Vfum , Nausea and Vomiting, Adult, Gwnq-sb-[id number], Viral Gastroenteritis, Adult, Easy- to-Read Additional Instructions: Followup with primary care provider in 3 -5 days. Avoid spicy foods, avoid dairy foods. BRAT diet: bananas, rice, apple sauce, toast. Take medications as directed. Patient questions asked and answered. ER precautions given, patient instructed to return to ER immediately for any new or worsening of symptoms. Clarence Isaacs Apr 23, 2018 13:10
[2018-04-23 13:47] LABS: APPEARANCE,URINE SLIGHTLY CLOUDY; BILIRUBIN, URINE NEGATIVE (NEGATIVE); COLOR,URINE PALE YELLOW; GLUCOSE, URINE (UA) NEGATIVE (NEGATIVE); KETONES,URINE 1+ (NEGATIVE); LEUKOCYTE ESTERASE ,URINE 1+ (NEGATIVE); NITRITE,URINE NEGATIVE (NEGATIVE); PH,URINE 5 (4.5-8.0); PROTEIN,URINE NEGATIVE (NEGATIVE); UROBILINOGEN,URINE NORMAL MG/DL (0.0-1.0)
[2018-04-23] MEDS ORDERED: BENADRYL25 MG ORAL (14:27)
[2018-04-23 14:35] VITALS: BP 107/72
== END 2018-04-23 14:35 | disposition home or self-care (01) ==
LOC: EMR 13:21
DX: R11.10 Vomiting, unspecified (principal); R19.7 Diarrhea, unspecified; Z91.013 Allergy to seafood; J45.909 Unspecified asthma, uncomplicated; R21 Rash and other nonspecific skin eruption
CPT/HCPCS: 81003; 81025; 99283

== ENCOUNTER 2018-10-20 22:11 | Emergency (ER) | payer MEDICAID ==
[~2018-10-20] VITALS: Ht 167.6 cm; Wt 99.8 kg
[~2018-10-20 22:11] MED LIST changes: +BENADRYL25 MG ORAL
--- NOTE | 2018-10-20 22:25 | NUR ---
ED Nurse Note: PT WALKED IN DUE TO STOMACH PAIN SINCE LAST NIGHT 10/19/18, PT STATES SHE HAS A LOT OF LUMPS ON HER STOMACH. AO4. NAD. VSS
[2018-10-20] MEDS ORDERED: NKM (22:26)
--- NOTE | 2018-10-20 22:42 | Emergency Room Report ---
History of Present Illness General Chief Complaint: Abdominal Pain Source: Patient Present Illness HPI This is a 27-year-old female with a history of recurrent abdominal pain which he says secondary to fibroid. She presents with chief complaint abdominal pain for the last few days. She has chronic diarrhea for over a month. She has pain mostly upper quadrant area. Has nausea and vomiting. No fever or chills. Pain is sharp and crampy. No relief with kgmz-gck-uwgfeeb medicine. Denies any other complaint. Nothing made it better. Palpation made it worse. Allergies: Coded Allergies: Shrimp (Verified Allergy, Unknown, 09/01/17) Patient History Past Medical History: see triage record, old chart reviewed Past Surgical History: none Pertinent Family History: none Social History: Denies: smoking Last Menstrual Period: Sep Now: No - UNSURE Immunizations: other Reviewed Nursing Documentation: PMH: Agreed; PSxH: Agreed Nursing Documentation-PMH Hx Asthma: Yes Hx Neurological Problems: Yes - FIBROIDS Review of Systems Eye: Denies: eye pain, blurred vision ENT: Denies: ear pain, nose congestion, throat swelling Respiratory: Denies: cough, shortness of breath Cardiovascular: Denies: chest pain, palpitations Gastrointestinal: Reports: abdominal pain, diarrhea, nausea, vomiting Musculoskeletal: Denies: back pain, joint pain Skin: Denies: rash Neurological: Denies: headache, numbness Endocrine: Denies: increased thirst, increased urine Hematologic/Lymphatic: Denies: easy bruising All Other Systems: negative except mentioned in HPI Physical Exam Vital Signs Date Time Temp Pulse Resp B/P (MAP) Pulse Ox O2 Delivery O2 Flow Rate FiO2 10/20/18 22:21 97.7 79 18 111/66 96 Room Air vitals normal Sp02 EP Interpretation: reviewed, normal General Appearance: well appearing, no apparent distress, alert Head: normocephalic, atraumatic Eyes: bilateral eye PERRL, bilateral eye EOMI ENT: hearing grossly normal, normal pharynx Neck: full range of motion, supple, no meningismus Respiratory: chest non-tender, lungs clear, normal breath sounds Cardiovascular #1: regular rate, rhythm, no murmur Gastrointestinal: normal bowel sounds, no mass, no organomegaly, no bruit, non- distended, tenderness - Diffuse Musculoskeletal: back normal, gait/station normal, normal range of motion Psychiatric: mood/affect normal Skin: warm/dry Medical Decision Making Diagnostic Impression: Primary Impression: Abdominal pain Qualified Codes: R10.84 - Generalized abdominal pain Additional Impressions: Constipation Qualified Codes: K59.00 - Constipation, unspecified Fibroid ER Course Patient presents with exacerbation of chronic abdominal pain. No evidence of acute abdomen or obstruction. No evidence of any hernia. We'll discharge home. Lab Results Impression labs unremarkabl CT/MRI/US Diagnostic Results CT/MRI/US Diagnostic Results : Imaging Test Ordered: CT abdomen and pelvis Impression Read by radiologist. Constipation. Fibroid. Last Vital Signs Date Time Temp Pulse Resp B/P (MAP) Pulse Ox O2 Delivery O2 Flow Rate FiO2 10/20/18 22:21 97.7 79 18 111/66 96 Room Air Status: improved Disposition: HOME, SELF-CARE Condition: Stable Scripts Lactulose (LACTULOSE*) 20 Gm/30 Ml Solution 30 ML ORAL DAILY, #240 ML 0 Refills Prov: Jimmy Villagomez MD 10/21/18 Ibuprofen* (MOTRIN*) 600 Mg Tablet 600 MG ORAL THREE TIMES A DAY, #30 TAB 0 Refills Prov: Jimmy Villagomez MD 10/21/18 Patient Instructions: Abdominal Pain, Adult Additional Instructions: Follow-up with your doctor in 7 days. Return if symptom worsen. Jimmy Villagomez MD Oct 20, 2018 22:42
[2018-10-20] MEDS ORDERED: HYDROmorphone 1mg/ml Carpuject IVP ONE (22:45)
--- NOTE | 2018-10-20 23:00 | NUR ---
ED Nurse Note: IV access established. Blood and urine collected; sent down to lab.
[2018-10-20 23:29] LABS: EOSINOPHILS % (AUTO) 1.2 % (0.0-3.0); HEMATOCRIT 35.6 % (37.0-47.0); LYMPHOCYTES % (AUTO) 38.5 % (20.0-45.0); MEAN CORPUSCULAR VOLUME 85 FL (80-99); MONOCYTES % (AUTO) 6.4 % (1.0-10.0); NEUTROPHILS % (AUTO) 52.9 % (45.0-75.0); PLATELET COUNT 226 K/UL (150-450); RED BLOOD COUNT 4.21 M/UL (4.20-5.40); RED CELL DISTRIBUTION WIDTH 13.6 % (11.6-14.8); WHITE BLOOD COUNT 10.5 K/UL (4.8-10.8)
[2018-10-20 23:31] LABS: BILIRUBIN, URINE NEGATIVE (NEGATIVE); GLUCOSE, URINE (UA) NEGATIVE (NEGATIVE); KETONES,URINE NEGATIVE (NEGATIVE); LEUKOCYTE ESTERASE ,URINE 1+ (NEGATIVE); NITRITE,URINE NEGATIVE (NEGATIVE); PH,URINE 7 (4.5-8.0); PROTEIN,URINE 1+ (NEGATIVE); UROBILINOGEN,URINE NORMAL MG/DL (0.0-1.0)
[2018-10-20 23:33] LABS: COLOR,URINE YELLOW
[2018-10-20 23:34] LABS: APPEARANCE,URINE SLIGHTLY CLOUDY
[2018-10-20 23:36] LABS: ANION GAP 10 mmol/L (5-15); BLOOD UREA NITROGEN 12 mg/dL (7-18); CALCIUM 8.7 MG/DL (8.5-10.1); CARBON DIOXIDE 23 MMOL/L (21-32); CHLORIDE 104 MMOL/L (98-107); CREATININE 0.9 MG/DL (0.55-1.30); POTASSIUM 3.9 MMOL/L (3.5-5.1); SODIUM 137 MMOL/L (136-145)
[2018-10-20 23:40] LABS: ALANINE AMINOTRANSFERASE 20 U/L (12-78); ALBUMIN 3.5 G/DL (3.4-5.0); ALBUMIN/GLOBULIN RATIO 0.8 (1.0-2.7); ALKALINE PHOSPHATASE 68 U/L (46-116); ASPARTATE AMINO TRANSFERASE 16 U/L (15-37); BILIRUBIN,TOTAL 0.1 MG/DL (0.2-1.0)
--- NOTE | 2018-10-20 23:43 | NUR ---
ED Nurse Note: Patient down to imaging.
--- NOTE | 2018-10-20 23:59 | NUR ---
ED Nurse Note: Pt back from imaging.
[2018-10-21] VITALS: BP 111/66
[2018-10-21] MEDS ORDERED: Ketorolac 30mg Inj IV ONE (01:00)
[2018-10-21] MEDS ORDERED: IBUPROFEN600 MG ORAL (01:03)
[2018-10-21] MEDS ORDERED: LACTULOSE20 GM/301 ORAL (01:03)
[2018-10-21 01:10] VITALS: BP 111/66
--- NOTE | 2018-10-21 01:10 | NUR ---
ED Nurse Note: Patient cleared for discharge per ERMD. NAD. VSS. Accompanied by significant other. Patient given prescriptions and discharge instructions; verbalized understanding. IV and ID band removed. Patient ambulated steady with all personal belongings.
--- NOTE | 2018-10-21 09:15 | Diagnostic Imaging Report ---
Indication: Abdominal pain for 3 days Technique: Spiral acquisitions obtained through the abdomen and pelvis. No oral contrast utilized, per emergency room physician request No IV contrast utilized, per emergency room physician request.. Multiplanar reconstructions were generated. Total dose length product 1102.92 mGycm. CTDIvol(s) 18.84 mGy. Dose reduction achieved using automated exposure control Comparison: None Findings: The appendix is normal. No evidence of diverticulosis or diverticulitis. No small bowel distention. No free or loculated intraperitoneal gas or fluid is evident. Distal esophagus, stomach, duodenum are unremarkable. Lack of IV contrast limits assessment of the solid organs. The liver, gallbladder, bile ducts, pancreas, spleen, adrenals, kidneys are all unremarkable. No renal or ureteral calculi, hydronephrosis, or hydroureter. The uterus is diffusely enlarged, demonstrates multiple masses. The right ovary is enlarged, demonstrates a 5 cm cyst. The left ovary is unremarkable Included lung bases demonstrate posterior dependent atelectatic changes. The bones are unremarkable Impression: No acute abnormality 5 cm right ovarian cyst. Recommend further follow-up with pelvic and endovaginal ultrasound Enlarged fibroid uterus This agrees with the preliminary interpretation provided overnight by [facility] telerad[facility] service. The CT scanner at [facility] is accredited by the [employer] and the scans are performed using protocols designed to limit radiation exposure to as low as reasonably achievable to attain images of sufficient resolution adequate for diagnostic evaluation.
== END 2018-10-21 01:10 | disposition home or self-care (01) ==
LOC: EMR 23:00
DX: R10.9 Unspecified abdominal pain (principal); K59.00 Constipation, unspecified; D25.9 Leiomyoma of uterus, unspecified; R19.7 Diarrhea, unspecified; R11.2 Nausea with vomiting, unspecified; N83.201 Unspecified ovarian cyst, right side
CPT/HCPCS: 36415; 74176; 80053; 80307; 81003; 81025; 83690; 85025; 87086; 96361; 96374; 96375; 99284; J1170; J1885; J2405

== ENCOUNTER 2019-02-11 07:47 | Emergency (ER) | payer MEDICAID ==
[~2019-02-11] VITALS: Ht 167.6 cm; Wt 90.7 kg
[~2019-02-11 07:47] MED LIST changes: +LACTULOSE20 GM/301 ORAL
[2019-02-11] MEDS ORDERED: ADVAIR 100-501 EACH INH (07:55)
[2019-02-11] MEDS ORDERED: VENTOLIN HFA18 GM INH (07:55)
--- NOTE | 2019-02-11 08:10 | Emergency Room Report ---
History of Present Illness General Chief Complaint: Nausea, Vomiting, and Diarrhea Source: Patient Present Illness HPI Patient presents with nausea vomiting diarrhea and abdominal pain that began yesterday. She some lettuce that she believes may have been contaminated. She denies any documented fevers or chills. The pain is constant and rated 10/10 at this time. It's left upper quadrant and left lower quadrant with some radiation to the flank. She does complain about dysuria also. The diarrhea is green in color and there is occasional specks of blood in it. She's not vomiting blood about unable to keep down any medication at this time. Patient is on her menstruation at this time. It's normal for her. She doesn't believe she is . Patient denies any upper respiratory symptoms, chest pain, shortness of breath, ankle edema or calf pain. Patient has a history of asthma but denies wheezing at this time. Allergies: Coded Allergies: Shrimp (Verified Allergy, Unknown, 09/01/17) Patient History Past Medical History: see triage record Social History: Denies: smoking Social History Narrative brought by family member Now: No Reviewed Nursing Documentation: PMH: Agreed; PSxH: Agreed Nursing Documentation-PMH Hx Asthma: Yes Hx Neurological Problems: Yes - FIBROIDS Review of Systems All Other Systems: negative except mentioned in HPI Physical Exam Vital Signs Date Time Temp Pulse Resp B/P (MAP) Pulse Ox O2 Delivery O2 Flow Rate FiO2 02/11/19 07:52 99.0 101 24 115/75 (88) 99 Room Air Sp02 EP Interpretation: reviewed, normal General Appearance: well appearing, GCS 15, non-toxic, mild distress - In pain Head: normocephalic Eyes: bilateral eye normal inspection, bilateral eye PERRL ENT: moist mucus membranes Neck: supple Respiratory: lungs clear, normal breath sounds Cardiovascular #1: regular rate, rhythm Cardiovascular #2: 2+ radial (R) Gastrointestinal: normal inspection, normal bowel sounds, no mass, non- distended, no guarding, no rebound, tenderness - Left-sided abdomen Genitourinary: no CVA tenderness Musculoskeletal: back normal, gait/station normal, normal range of motion Neurologic: alert, oriented x3, grossly normal Psychiatric: mood/affect normal Skin: normal inspection, warm/dry Medical Decision Making Diagnostic Impression: Primary Impression: Gastroenteritis ER Course Patient presents with nausea vomiting diarrhea for 2 days. Differential includes gastroenteritis, food poisoning, bacterial gastroenteritis, pyelonephritis, UTI amongst others. Patient will be evaluated with labs. The pineal labs imaging may be ordered. In addition the patient will receive IV hydration, Pepcid, Reglan, Benadryl and morphine. Patient will need repeated abdominal exams. Labs with normal CBC, CMP, lipase and coags. Urinalysis too numerous to count red cells and few white cells. Patient tolerated oral intake and reports decreased pain. On exam abdomen is soft but she still feels some tenderness. Rocephin given for possible UTI. Will await cultures for further treatment. Most likely contamination with menstrual blood. Discussed observation at home. No further studies indicated at this time. Patient stable for outpatient observation and treatment. Laboratory Tests Test 02/11/19 08:19 White Blood Count 8.8 K/UL (4.8-10.8) Red Blood Count 4.47 M/UL (4.20-5.40) Hemoglobin 12.4 G/DL (12.0-16.0) Hematocrit 37.6 % (37.0-47.0) Mean Corpuscular Volume 84 FL (80-99) Mean Corpuscular Hemoglobin 27.7 PG (27.0-31.0) Mean Corpuscular Hemoglobin Concent 33.0 G/DL (32.0-36.0) Red Cell Distribution Width 14.1 % (11.6-14.8) Platelet Count 234 K/UL (150-450) Mean Platelet Volume 10.5 FL (6.5-10.1) H Neutrophils (%) (Auto) % (45.0-75.0) Lymphocytes (%) (Auto) % (20.0-45.0) Monocytes (%) (Auto) % (1.0-10.0) Eosinophils (%) (Auto) % (0.0-3.0) Basophils (%) (Auto) % (0.0-2.0) Differential Total Cells Counted 100 Neutrophils % (Manual) 87 % (45-75) H Lymphocytes % (Manual) 11 % (20-45) L Monocytes % (Manual) 2 % (1-10) Eosinophils % (Manual) 0 % (0-3) Basophils % (Manual) 0 % (0-2) Band Neutrophils 0 % (0-8) Platelet Estimate Adequate Platelet Morphology Normal Red Blood Cell Morphology Normal Prothrombin Time 10.7 SEC (9.30-11.50) Prothrombin Time INR 1.0 (0.9-1.1) PTT 29 SEC (23-33) Urine Color Red Urine Appearance Very cloudy Urine pH 8 (4.5-8.0) Urine Specific [place] 1.010 (1.005-1.035) Urine Protein 3+ (NEGATIVE) H Urine Glucose (UA) Negative (NEGATIVE) Urine Ketones Negative (NEGATIVE) Urine Blood 5+ (NEGATIVE) H Urine Nitrite Negative (NEGATIVE) Urine Bilirubin Negative (NEGATIVE) Urine Urobilinogen Normal MG/DL (0.0-1.0) Urine Leukocyte Esterase 3+ (NEGATIVE) H Urine RBC Tntc /HPF (0 - 2) H Urine WBC 5-10 /HPF (0 - 2) H Urine Squamous Epithelial Cells Few /LPF (NONE/OCC) Urine Bacteria Few /HPF (NONE) Urine HCG, Qualitative Negative (NEGATIVE) Sodium Level 139 MMOL/L (136-145) Potassium Level 3.3 MMOL/L (3.5-5.1) L Chloride Level 107 MMOL/L (98-107) Carbon Dioxide Level 19 MMOL/L (21-32) L Anion Gap 14 mmol/L (5-15) Blood Urea Nitrogen 12 mg/dL (7-18) Creatinine 0.8 MG/DL (0.55-1.30) Estimate Glomerular Filtration Rate > 60 mL/min (>60) Glucose Level 99 MG/DL (74-106) Calcium Level 9.0 MG/DL (8.5-10.1) Total Bilirubin 0.4 MG/DL (0.2-1.0) Aspartate Amino Transferase (AST) 20 U/L (15-37) Alanine Aminotransferase (ALT) 23 U/L (12-78) Alkaline Phosphatase 55 U/L (46-116) Total Protein 7.9 G/DL (6.4-8.2) Albumin 3.5 G/DL (3.4-5.0) Globulin 4.4 g/dL Albumin/Globulin Ratio 0.8 (1.0-2.7) L Lipase 87 U/L (73-393) Last Vital Signs Date Time Temp Pulse Resp B/P (MAP) Pulse Ox O2 Delivery O2 Flow Rate FiO2 02/11/19 13:00 98.9 100 24 115/75 99 Room Air Status: improved Disposition: HOME, SELF-CARE Condition: Improved Scripts Tramadol Hcl* (ULTRAM*) 50 Mg Tablet 50 MG ORAL Q6H PRN for For Pain, #8 TAB 0 Refills Prov: Rangel Tineo MD 02/11/19 Ondansetron Odt* (ZOFRAN ODT*) 4 Mg Tab.rapdis 4 MG BC EVERY 8 HOURS PRN for Nausea & Vomiting, #6 TAB 1 Refill Prov: Rangel Tineo MD 02/11/19 Rangel Tineo MD Feb 11, 2019 08:10
[2019-02-11] MEDS ORDERED: DiphenhydrAMINE 50mg/ml Inj IVP ONE (08:15)
[2019-02-11] MEDS ORDERED: Morphine Sulfate 4mg/ml Inj (IV USE ONLY) IVP ONE (08:15)
[2019-02-11] MEDS ORDERED: Metoclopramide 10mg/2ml Inj IVP ONE (08:15)
[2019-02-11 08:19] VITALS: BP 115/75
[2019-02-11 08:33] LABS: HEMATOCRIT 37.6 % (37.0-47.0); HEMOGLOBIN 12.4 G/DL (12.0-16.0); MEAN CORPUSCULAR VOLUME 84 FL (80-99); PLATELET COUNT 234 K/UL (150-450); RED BLOOD COUNT 4.47 M/UL (4.20-5.40); RED CELL DISTRIBUTION WIDTH 14.1 % (11.6-14.8); WHITE BLOOD COUNT 8.8 K/UL (4.8-10.8)
[2019-02-11 08:35] LABS: APPEARANCE,URINE VERY CLOUDY; BILIRUBIN, URINE NEGATIVE (NEGATIVE); GLUCOSE, URINE (UA) NEGATIVE (NEGATIVE); KETONES,URINE NEGATIVE (NEGATIVE); LEUKOCYTE ESTERASE ,URINE 3+ (NEGATIVE); NITRITE,URINE NEGATIVE (NEGATIVE); PH,URINE 8 (4.5-8.0); PROTEIN,URINE 3+ (NEGATIVE); UROBILINOGEN,URINE NORMAL MG/DL (0.0-1.0)
[2019-02-11 08:39] LABS: ANION GAP 14 mmol/L (5-15); BLOOD UREA NITROGEN 12 mg/dL (7-18); CARBON DIOXIDE 19 MMOL/L (21-32); CHLORIDE 107 MMOL/L (98-107); COLOR,URINE RED; CREATININE 0.8 MG/DL (0.55-1.30); POTASSIUM 3.3 MMOL/L (3.5-5.1); SODIUM 139 MMOL/L (136-145)
[2019-02-11 08:44] LABS: ALANINE AMINOTRANSFERASE 23 U/L (12-78); ALBUMIN 3.5 G/DL (3.4-5.0); ALBUMIN/GLOBULIN RATIO 0.8 (1.0-2.7); ALKALINE PHOSPHATASE 55 U/L (46-116); ASPARTATE AMINO TRANSFERASE 20 U/L (15-37); BILIRUBIN,TOTAL 0.4 MG/DL (0.2-1.0)
[2019-02-11] MEDS ORDERED: cefTRIAXone 1 GM in NS 55 ML IVPB ONE (10:30)
[2019-02-11] MEDS ORDERED: ONDANSETRON ODT4 MG BC (12:58)
[2019-02-11] MEDS ORDERED: TRAMADOL HCL50 MG ORAL (12:58)
[2019-02-11 13:00] VITALS: BP 115/75
== END 2019-02-11 13:00 | disposition home or self-care (01) ==
LOC: EMR 08:08
DX: K52.9 Noninfective gastroenteritis and colitis, unspecified (principal); J45.909 Unspecified asthma, uncomplicated; Z91.013 Allergy to seafood
CPT/HCPCS: 36415; 80053; 81003; 81025; 83690; 85007; 85025; 85610; 85730; 96361; 96365; 96375; 99284; J0696; J1200; J2270; J2765; S0028

== ENCOUNTER 2019-05-05 22:48 | Emergency (ER) | payer MEDICAID ==
[~2019-05-05] VITALS: Ht 167.6 cm; Wt 95.3 kg
[~2019-05-05 22:48] MED LIST changes: +ADVAIR 100-501 EACH INH; +ONDANSETRON ODT4 MG BC; +VENTOLIN HFA18 GM INH
[2019-05-05 22:52] VITALS: BP 131/88
--- NOTE | 2019-05-05 22:52 | NUR ---
ED Nurse Note: Walk-in patient presents with general complaints of not feeling well, reports decreased energy, sporadic cough, diarrhea and nausea. Will continue to monitor and service orders.
[2019-05-05] MEDS ORDERED: DiphenhydrAMINE 50mg/ml Inj IVP ONE (23:15)
[2019-05-05] MEDS ORDERED: D5NS 1,000 ML IV ONE (23:15)
[2019-05-05 23:27] LABS: BASOPHILS % (AUTO) 0.8 % (0.0-2.0); EOSINOPHILS % (AUTO) 2.2 % (0.0-3.0); HEMATOCRIT 35.3 % (37.0-47.0); HEMOGLOBIN 11.5 G/DL (12.0-16.0); LYMPHOCYTES % (AUTO) 35.2 % (20.0-45.0); MEAN CORPUSCULAR VOLUME 85 FL (80-99); MONOCYTES % (AUTO) 6.4 % (1.0-10.0); NEUTROPHILS % (AUTO) 55.5 % (45.0-75.0); PLATELET COUNT 264 K/UL (150-450); RED BLOOD COUNT 4.15 M/UL (4.20-5.40); RED CELL DISTRIBUTION WIDTH 13.1 % (11.6-14.8); WHITE BLOOD COUNT 10.8 K/UL (4.8-10.8)
[2019-05-05 23:30] LABS: APPEARANCE,URINE CLEAR; BILIRUBIN, URINE NEGATIVE (NEGATIVE); COLOR,URINE PALE YELLOW; GLUCOSE, URINE (UA) NEGATIVE (NEGATIVE); KETONES,URINE NEGATIVE (NEGATIVE); LEUKOCYTE ESTERASE ,URINE 2+ (NEGATIVE); NITRITE,URINE NEGATIVE (NEGATIVE); PH,URINE 8 (4.5-8.0); PROTEIN,URINE NEGATIVE (NEGATIVE); UROBILINOGEN,URINE NORMAL MG/DL (0.0-1.0)
--- NOTE | 2019-05-05 23:38 | NUR ---
ED Nurse Note: Patient tolerated IV start and lab draw well, urine collected, medication rendered and fluids hung. Patient is resting with boyfriend at bedside. Will continue to monitor.
[2019-05-05 23:50] LABS: ANION GAP 11 mmol/L (5-15); BLOOD UREA NITROGEN 14 mg/dL (7-18); CALCIUM 8.8 MG/DL (8.5-10.1); CARBON DIOXIDE 23 MMOL/L (21-32); CHLORIDE 109 MMOL/L (98-107); CREATININE 0.9 MG/DL (0.55-1.30); POTASSIUM 3.8 MMOL/L (3.5-5.1); SODIUM 143 MMOL/L (136-145)
[2019-05-05 23:52] LABS: ALANINE AMINOTRANSFERASE 16 U/L (12-78); ALBUMIN 3.4 G/DL (3.4-5.0); ALBUMIN/GLOBULIN RATIO 0.8 (1.0-2.7); ALKALINE PHOSPHATASE 69 U/L (46-116); ASPARTATE AMINO TRANSFERASE 11 U/L (15-37); BILIRUBIN,TOTAL 0.2 MG/DL (0.2-1.0)
[2019-05-06] MEDS ORDERED: ZOFRAN4 MG ORAL (00:20)
[2019-05-06] MEDS ORDERED: DICYCLOMINE HCL10 MG ORAL (00:20)
--- NOTE | 2019-05-06 00:21 | Emergency Room Report ---
History of Present Illness General Chief Complaint: Nausea, Vomiting, and Diarrhea Source: Patient Present Illness HPI 28-year-old female presents with diarrhea, nausea vomiting, crampy abdominal pain x3 days, no aggravating or alleviating factors, symptoms have been constant she has had greater than 2-3 episodes, he denies any chest pain shortness of breath, she states today she stood up suddenly and felt lightheaded. She denies any blood in the vomit or diarrhea. Patient is concerned Allergies: Coded Allergies: Shrimp (Verified Allergy, Unknown, 09/01/17) Patient History Past Medical History: see triage record Last Menstrual Period: 02/17/19 Now: No : 2 Para: 2 Reviewed Nursing Documentation: PMH: Agreed; PSxH: Agreed Nursing Documentation-PMH Past Medical History: No History, Except For Hx Asthma: Yes Hx Neurological Problems: Yes - FIBROIDS Review of Systems All Other Systems: negative except mentioned in HPI Physical Exam Vital Signs Date Time Temp Pulse Resp B/P (MAP) Pulse Ox O2 Delivery O2 Flow Rate FiO2 05/05/19 22:52 98.4 89 18 131/88 (102) 98 Room Air Sp02 EP Interpretation: reviewed, normal General Appearance: well appearing, no apparent distress, alert Head: normocephalic, atraumatic Eyes: bilateral eye PERRL, bilateral eye EOMI ENT: uvula midline, dry mucus membranes Neck: supple, thyroid normal, supple/symm/no masses Respiratory: lungs clear, no respiratory distress, no retraction, no accessory muscle use Cardiovascular #1: normal peripheral pulses, regular rate, rhythm, no edema, no gallop, no murmur Gastrointestinal: non tender, soft, no guarding, no rebound Musculoskeletal: normal inspection Neurologic: alert, oriented x3 Psychiatric: mood/affect normal Skin: no rash, warm/dry Medical Decision Making Diagnostic Impression: Primary Impression: Nausea, vomiting, and diarrhea Additional Impressions: Gastroenteritis Abdominal pain Qualified Codes: R10.84 - Generalized abdominal pain ER Course 28-year-old female presents with acute nausea vomiting and diarrhea, on the differential includes appendicitis diverticulitis, gastroenteritis, patient with soft abdomen nontender no rebound no guarding, patient on exam appears clinically dehydrated with dry mixed membranes, 2 L of fluid were ordered, labs ordered, no acute findings on lab, patient felt better with fluid ministration will provide patient with Zofran. Patient counseled that she must have a bland diet. repeat abdominal exam 12:17 AM, no rebound no guarding. Disposition home with return precautions Laboratory Tests Test 05/05/19 23:03 05/05/19 23:10 Urine Color Pale yellow Urine Appearance Clear Urine pH 8 (4.5-8.0) Urine Specific [place] 1.015 (1.005-1.035) Urine Protein Negative (NEGATIVE) Urine Glucose (UA) Negative (NEGATIVE) Urine Ketones Negative (NEGATIVE) Urine Blood Negative (NEGATIVE) Urine Nitrite Negative (NEGATIVE) Urine Bilirubin Negative (NEGATIVE) Urine Urobilinogen Normal MG/DL (0.0-1.0) Urine Leukocyte Esterase 2+ (NEGATIVE) H Urine RBC 0-2 /HPF (0 - 2) Urine WBC 20-30 /HPF (0 - 2) H Urine Squamous Epithelial Cells Moderate /LPF (NONE/OCC) H Urine Bacteria Few /HPF (NONE) Urine HCG, Qualitative Negative (NEGATIVE) Urine Opiates Screen Negative (NEGATIVE) Urine Barbiturates Screen Negative (NEGATIVE) Phencyclidine (PCP) Screen Negative (NEGATIVE) Urine Amphetamines Screen Negative (NEGATIVE) Urine Benzodiazepines Screen Negative (NEGATIVE) Urine Cocaine Screen Negative (NEGATIVE) Urine Marijuana (THC) Screen Negative (NEGATIVE) White Blood Count 10.8 K/UL (4.8-10.8) Red Blood Count 4.15 M/UL (4.20-5.40) L Hemoglobin 11.5 G/DL (12.0-16.0) L Hematocrit 35.3 % (37.0-47.0) L Mean Corpuscular Volume 85 FL (80-99) Mean Corpuscular Hemoglobin 27.8 PG (27.0-31.0) Mean Corpuscular Hemoglobin Concent 32.7 G/DL (32.0-36.0) Red Cell Distribution Width 13.1 % (11.6-14.8) Platelet Count 264 K/UL (150-450) Mean Platelet Volume 10.1 FL (6.5-10.1) Neutrophils (%) (Auto) 55.5 % (45.0-75.0) Lymphocytes (%) (Auto) 35.2 % (20.0-45.0) Monocytes (%) (Auto) 6.4 % (1.0-10.0) Eosinophils (%) (Auto) 2.2 % (0.0-3.0) Basophils (%) (Auto) 0.8 % (0.0-2.0) Sodium Level 143 MMOL/L (136-145) Potassium Level 3.8 MMOL/L (3.5-5.1) Chloride Level 109 MMOL/L (98-107) H Carbon Dioxide Level 23 MMOL/L (21-32) Anion Gap 11 mmol/L (5-15) Blood Urea Nitrogen 14 mg/dL (7-18) Creatinine 0.9 MG/DL (0.55-1.30) Estimate Glomerular Filtration Rate > 60 mL/min (>60) Glucose Level 105 MG/DL (74-106) Calcium Level 8.8 MG/DL (8.5-10.1) Total Bilirubin 0.2 MG/DL (0.2-1.0) Aspartate Amino Transferase (AST) 11 U/L (15-37) L Alanine Aminotransferase (ALT) 16 U/L (12-78) Alkaline Phosphatase 69 U/L (46-116) Total Protein 7.7 G/DL (6.4-8.2) Albumin 3.4 G/DL (3.4-5.0) Globulin 4.3 g/dL Albumin/Globulin Ratio 0.8 (1.0-2.7) L Lipase 134 U/L (73-393) Human Chorionic Gonadotropin, Quant 1 mIU/mL (1-6) Last Vital Signs Date Time Temp Pulse Resp B/P (MAP) Pulse Ox O2 Delivery O2 Flow Rate FiO2 05/05/19 22:52 98.4 87 18 131/88 98 Room Air Disposition: HOME, SELF-CARE Condition: Stable Scripts Dicyclomine Hcl* (DICYCLOMINE HCL*) 10 Mg Capsule 10 MG ORAL QID, #20 CAP Prov: Alf Mota MD 05/06/19 Ondansetron (Zofran) 4 Mg Tablet 4 MG ORAL Q8H PRN for Nausea & Vomiting, #15 TAB 0 Refills Prov: Alf Mota MD 05/06/19 Referrals: [facility] Patient Instructions: Abdominal Pain, Adult, Viral Gastroenteritis, Adult, Easy -to-Read Additional Instructions: The patient was provided with discharge instructions, notified to follow-up with a primary care doctor and or specialist in the next 24-48 hours, and to return to the ED if they have worsening of their symptoms. Please note that this report is being documented using [employer] technology. This can lead to erroneous entry secondary to incorrect interpretation by the dictating instrument. Alf Mota MD May 06, 2019 00:21
[2019-05-06 00:39] VITALS: BP 128/82
--- NOTE | 2019-05-06 00:39 | NUR ---
ER DISCHARGE NOTE: Patient is cleared to be discharged per ERMD, pt is aox4, on room air, with stable vital signs. pt was given dc and prescription instructions, pt was able to verbalize understanding, pt id band removed without complications. pt is able to ambulate with steady gait. pt took all belongings.
== END 2019-05-06 00:40 | disposition home or self-care (01) ==
LOC: EMR 23:00
DX: K52.9 Noninfective gastroenteritis and colitis, unspecified (principal); J45.909 Unspecified asthma, uncomplicated; Z91.013 Allergy to seafood
CPT/HCPCS: 36415; 80053; 80307; 81003; 81025; 83690; 84702; 85025; 87086; 96365; 96375; 99284; J1200; J2405; J7040

== ENCOUNTER 2019-05-22 00:40 | Emergency (ER) | payer MEDICAID ==
[~2019-05-22] VITALS: Ht 167.6 cm; Wt 99.8 kg
[~2019-05-22 00:40] MED LIST changes: +DICYCLOMINE HCL10 MG ORAL; +ZOFRAN4 MG ORAL
[2019-05-22] MEDS ORDERED: Morphine Sulfate 4mg/ml Inj (IV USE ONLY) IVP ONE ×2 (01:00→01:45)
--- NOTE | 2019-05-22 01:00 | NUR ---
ED Nurse Note: Recieved pt from home, awake, alert and oriented x 4, pt with c/o abdominal pain radiating to back at 10/10 for 2 days, also c/o nausea and vomiting, pt has hx of gastritis, denies cp, no sob or labored breathing, pt is crying, assisted pt with gowning and placed on monitoring.
--- NOTE | 2019-05-22 01:02 | Emergency Room Report ---
History of Present Illness General Chief Complaint: Nausea, Vomiting, and Diarrhea Source: Patient, Medical Record Present Illness HPI This a 28-year-old female with no past medical history. She presents with chief complaint of back pain and abdominal pain. Also with nausea and vomiting and diarrhea. Onset for last 2 days. Most the pain is the right flank area radiating around to the front. Vomiting is nonbloody nonbilious. Diarrhea is watery. She has similar symptoms in the past. CT scan in the past showed enlarged uterus and ovarian cyst. No mention of gallstones. She has never follow-up with the airbrush artist photography for further work-up. Allergies: Coded Allergies: Shrimp (Verified Allergy, Unknown, 09/01/17) Patient History Past Medical History: see triage record, old chart reviewed Past Surgical History: none Pertinent Family History: none Social History: Denies: smoking Last Menstrual Period: 05/2019 Now: No : 1 Para: 1 Immunizations: other Reviewed Nursing Documentation: PMH: Agreed; PSxH: Agreed Nursing Documentation-PMH Hx Asthma: Yes Hx Neurological Problems: Yes - FIBROIDS Review of Systems Eye: Denies: eye pain, blurred vision ENT: Denies: ear pain, nose congestion, throat swelling Respiratory: Denies: cough, shortness of breath Cardiovascular: Denies: chest pain, palpitations Gastrointestinal: Reports: abdominal pain, diarrhea, nausea, vomiting Musculoskeletal: Denies: back pain, joint pain Skin: Denies: rash Neurological: Denies: headache, numbness Endocrine: Denies: increased thirst, increased urine Hematologic/Lymphatic: Denies: easy bruising All Other Systems: negative except mentioned in HPI Physical Exam Vital Signs Date Time Temp Pulse Resp B/P (MAP) Pulse Ox O2 Delivery O2 Flow Rate FiO2 05/22/19 00:42 98.1 83 18 111/68 (82) 98 Room Air Vitals normal Sp02 EP Interpretation: reviewed, normal General Appearance: well appearing, no apparent distress, alert Head: normocephalic, atraumatic Eyes: bilateral eye PERRL, bilateral eye EOMI ENT: hearing grossly normal, normal pharynx Neck: full range of motion, supple, no meningismus Respiratory: chest non-tender, lungs clear, normal breath sounds Cardiovascular #1: regular rate, rhythm, no murmur Gastrointestinal: normal bowel sounds, non tender, no mass, no organomegaly, no bruit, non-distended Musculoskeletal: back normal, gait/station normal, normal range of motion Psychiatric: mood/affect normal Medical Decision Making Diagnostic Impression: Primary Impression: Nausea, vomiting, and diarrhea Additional Impressions: Abdominal pain Qualified Codes: R10.84 - Generalized abdominal pain UTI (urinary tract infection) Qualified Codes: N30.00 - Acute cystitis without hematuria ER Course This patient presents with abdominal pain. Labs unremarkable. This is a chronic issue for her. Explained to patient she needs to see airbrush artist photography for further work-up. Abdomen is soft. I see no evidence of acute abdomen or obstruction. I see no need for repeat CT scan. Patient abdominal exam is benign. Pain resolved. Will discharge home. Last Vital Signs Date Time Temp Pulse Resp B/P (MAP) Pulse Ox O2 Delivery O2 Flow Rate FiO2 05/22/19 00:42 98.1 83 18 111/68 (82) 98 Room Air Status: improved Disposition: HOME, SELF-CARE Condition: Stable Scripts Levofloxacin (LEVOFLOXACIN*) 500 Mg Tablet 500 MG ORAL DAILY, #7 TAB Prov: Jimmy Villagomez MD 05/22/19 Hydrocodone/Acetaminophen 5-325* (HYDROCODONE/ACETAMINOPHEN 5-325*) 1 Each Tablet 1 TAB ORAL Q6H PRN for For Pain, #15 TAB 0 Refills Prov: Jimmy Villagomez MD 05/22/19 Additional Instructions: Follow-up with your doctor in 2 3 days if not better. You may need a referral to see a airbrush artist photography for further work-up of your abdominal pain. Return if symptoms worsen. Jimmy Villagomez MD May 22, 2019 01:02
[2019-05-22 01:18] LABS: BASOPHILS % (AUTO) 0.7 % (0.0-2.0); EOSINOPHILS % (AUTO) 1.1 % (0.0-3.0); HEMATOCRIT 33.8 % (37.0-47.0); HEMOGLOBIN 11.5 G/DL (12.0-16.0); LYMPHOCYTES % (AUTO) 34.1 % (20.0-45.0); MEAN CORPUSCULAR VOLUME 83 FL (80-99); MONOCYTES % (AUTO) 5.1 % (1.0-10.0); PLATELET COUNT 278 K/UL (150-450); RED BLOOD COUNT 4.05 M/UL (4.20-5.40); WHITE BLOOD COUNT 11.9 K/UL (4.8-10.8)
[2019-05-22 01:18] LABS: APPEARANCE,URINE SLIGHTLY CLOUDY; BILIRUBIN, URINE NEGATIVE (NEGATIVE); COLOR,URINE PALE YELLOW; GLUCOSE, URINE (UA) NEGATIVE (NEGATIVE); KETONES,URINE NEGATIVE (NEGATIVE); LEUKOCYTE ESTERASE ,URINE 3+ (NEGATIVE); NITRITE,URINE NEGATIVE (NEGATIVE); PH,URINE 6 (4.5-8.0); PROTEIN,URINE 2+ (NEGATIVE); UROBILINOGEN,URINE NORMAL MG/DL (0.0-1.0)
[2019-05-22 01:27] LABS: ANION GAP 12 mmol/L (5-15); BLOOD UREA NITROGEN 15 mg/dL (7-18); CALCIUM 9.2 MG/DL (8.5-10.1); CARBON DIOXIDE 22 MMOL/L (21-32); CHLORIDE 109 MMOL/L (98-107); POTASSIUM 3.6 MMOL/L (3.5-5.1); SODIUM 142 MMOL/L (136-145)
[2019-05-22 01:33] LABS: ALANINE AMINOTRANSFERASE 16 U/L (12-78); ALBUMIN 3.4 G/DL (3.4-5.0); ALBUMIN/GLOBULIN RATIO 0.8 (1.0-2.7); ALKALINE PHOSPHATASE 67 U/L (46-116); ASPARTATE AMINO TRANSFERASE 11 U/L (15-37); BILIRUBIN,TOTAL 0.2 MG/DL (0.2-1.0)
[2019-05-22] MEDS ORDERED: cefTRIAXone 1 GM in NS 55 ML IVPB ONE (01:45)
[2019-05-22] MEDS ORDERED: HYDROCODON-ACE1 EA15 ORAL (01:57)
[2019-05-22] MEDS ORDERED: LEVOFLOXACIN500 MG ORAL (01:57)
[2019-05-22 02:15] VITALS: BP 119/74
--- NOTE | 2019-05-22 02:30 | NUR ---
ER DISCHARGE NOTE: Patient is cleared to be discharged per ERMD, pt is aox4, on room air, with stable vital signs. pt was given dc and prescription instructions, pt was able to verbalize understanding, pt id band and iv site removed without complications. pt is able to ambulate with steady gait. pt took all belongings.
[2019-05-22 02:35] VITALS: BP 119/74
== END 2019-05-22 02:35 | disposition home or self-care (01) ==
LOC: EMR 01:02
DX: N30.00 Acute cystitis without hematuria (principal); R10.84 Generalized abdominal pain; Z91.013 Allergy to seafood; J45.909 Unspecified asthma, uncomplicated; R11.2 Nausea with vomiting, unspecified; R19.7 Diarrhea, unspecified
CPT/HCPCS: 36415; 80053; 81003; 81025; 83690; 85025; 87086; 87181; 96361; 96365; 96375; 96376; J0696; J2270; J2405; Z7502; 99284

== ENCOUNTER 2019-07-13 10:07 | Emergency (ER) | payer MEDICAID ==
[~2019-07-13] VITALS: Ht 167.6 cm; Wt 95.3 kg
[~2019-07-13 10:07] MED LIST changes: +HYDROCODON-ACE1 EA15 ORAL; +LEVOFLOXACIN500 MG ORAL
--- NOTE | 2019-07-13 10:18 | NUR ---
ED Nurse Note: pt presents to ED with left eye pain and swelling since yesterday. pt reports thinking her eyelash extension caused an infection because she went to a new person and has never had this happen with previous extensions. pt rates the pain 10/10 that "everything makes worse." pt also reports taking tylenol [employer] without any relief of symptoms.
[2019-07-13 10:20] VITALS: BP 118/82
[2019-07-13] MEDS ORDERED: AMOXICILLIN500 MG ORAL (10:45)
[2019-07-13] MEDS ORDERED: GENTAK5 ML LEFT EYE (10:45)
[2019-07-13 10:52] VITALS: BP 118/82
--- NOTE | 2019-07-13 13:23 | Emergency Room Report ---
History of Present Illness General Chief Complaint: Eye Problems Source: Patient Present Illness HPI Patient presents with complaints of left upper eyelid discomfort Ongoing for the past several days patient had eyelashes put on about 2 weeks ago And about 7 days after started noticing the irritation Denies any change in vision she has mostly discomfort to the left upper eyelid Denies any fevers Allergies: Coded Allergies: Shrimp (Verified Allergy, Unknown, 09/01/17) Patient History Past Medical History: see triage record Last Menstrual Period: 05/18/19 Reviewed Nursing Documentation: PMH: Agreed; PSxH: Agreed Nursing Documentation-PMH Past Medical History: No History, Except For Hx Asthma: Yes Hx Neurological Problems: Yes - FIBROIDS Review of Systems All Other Systems: negative except mentioned in HPI Physical Exam Vital Signs Date Time Temp Pulse Resp B/P (MAP) Pulse Ox O2 Delivery O2 Flow Rate FiO2 07/13/19 10:10 98.2 108 19 118/82 (94) 100 Room Air Sp02 EP Interpretation: reviewed, normal General Appearance: well appearing, no apparent distress Head: normocephalic, atraumatic Eyes: left eye other - Some erythema noted to the midpoint left upper eyelid no obvious pustule, conjunctiva otherwise clear; bilateral eye PERRL ENT: normal pharynx Neck: supple Respiratory: lungs clear, no respiratory distress, no retraction Neurologic: alert, oriented x3, responsive Skin: other - As above Lymphatic: no adenopathy Medical Decision Making Diagnostic Impression: Primary Impression: sty ER Course Given the history exam and findings there appears to be a local irritation/ likely possible early infection patient placed on appropriate medication and requires close outpatient follow-up Please note that the patient did not require staining of the eye no obvious conjunctival irritation or involvement Last Vital Signs Date Time Temp Pulse Resp B/P (MAP) Pulse Ox O2 Delivery O2 Flow Rate FiO2 07/13/19 10:52 98.2 19 118/82 100 Room Air 07/13/19 10:10 108 Status: unchanged Disposition: HOME, SELF-CARE Condition: Stable Scripts Amoxicillin* (AMOXIL*) 500 Mg Capsule 500 MG ORAL BID, #14 CAP Prov: Christie Lagos DO 07/13/19 Gentamicin Sulfate* (GENTAK*) 5 Ml Drops 1 DROP LEFT EYE TID for 7 Days, #1 DROP 0 Refills Prov: Christie Lagos DO 07/13/19 Referrals: NON PHYSICIAN (PCP) [facility] Mariama Fajardo. [facility] Patient Instructions: [place] Additional Instructions: Patient is provided with the discharge instructions notified to follow up with primary doctor in the next 2-3 days otherwise return to the er with any worsening symptoms. Please note that this report is being documented using DRAGON technology. This can lead to erroneous entry secondary to incorrect interpretation by the dictating instrument. Christie Lagos DO Jul 13, 2019 13:23
== END 2019-07-13 10:55 | disposition home or self-care (01) ==
LOC: EMR 10:35
DX: H00.014 Hordeolum externum left upper eyelid (principal); Z91.013 Allergy to seafood
CPT/HCPCS: 99282

== ENCOUNTER 2019-08-12 12:03 | Emergency (ER) | payer MEDICAID ==
[~2019-08-12] VITALS: Ht 167.6 cm; Wt 95.3 kg
[~2019-08-12 12:03] MED LIST changes: +GENTAK5 ML LEFT EYE
[2019-08-12] MEDS ORDERED: Metoclopramide 10mg/2ml Inj IVP ONE (12:45)
[2019-08-12] MEDS ORDERED: DiphenhydrAMINE 50mg/ml Inj IVP ONE (12:45)
[2019-08-12] MEDS ORDERED: Ketorolac 30mg Inj IV ONE (12:45)
[2019-08-12 12:58] LABS: APPEARANCE,URINE CLOUDY; BILIRUBIN, URINE NEGATIVE (NEGATIVE); COLOR,URINE PALE YELLOW; GLUCOSE, URINE (UA) NEGATIVE (NEGATIVE); KETONES,URINE NEGATIVE (NEGATIVE); LEUKOCYTE ESTERASE ,URINE 2+ (NEGATIVE); NITRITE,URINE NEGATIVE (NEGATIVE); PH,URINE 7 (4.5-8.0); PROTEIN,URINE 1+ (NEGATIVE); UROBILINOGEN,URINE NORMAL MG/DL (0.0-1.0)
--- NOTE | 2019-08-12 14:31 | Diagnostic Imaging Report ---
Indication: Pelvic pain and vaginal bleeding. Negative test Technique: Transabdominal and transvaginal images of the pelvis. Doppler interrogation of the ovaries Comparison: No comparison sonograms. Reference made to 10/20/[address] Findings: Uterus is enlarged, measuring 11.8 cm length by 7.7 cm AP. Within the endometrium are multiple hypoechoic masses measuring up to 3.9 cm in diameter. The endometrium measures 11 mm thick. The right ovary measures 4.2 cm length. The left ovary is only visible on the transabdominal images, measures 3.5 cm length. Both ovaries demonstrate normal flow on Doppler imaging. No free cul-de-sac fluid Note that the right ovarian cyst described on prior CT scan is not evident on this study, presumably involuted in the interim Impression: Enlarged fibroid uterus, also previously described Negative for adnexal mass. Note that the right ovarian cyst described on prior CT scan is not evident on this study, presumably involuted in the interim
--- NOTE | 2019-08-12 14:34 | NUR ---
ED Nurse Note: pt c/o vaginal bleeding and back pain ermd smith done pt taken to US and is still in US.
--- NOTE | 2019-08-12 15:13 | Diagnostic Imaging Report ---
Indications: Back pain, trauma Technique: Spiral acquisitions obtained through the lumbar spine. Multiplanar reconstructions were generated. No IV contrast utilized. Total dose length product 1114 mGycm. CTDIvol(s) 29 mGy. Dose reduction achieved using automated exposure control Comparison: No comparison lumbar spine CT. Reference is made to abdomen pelvis CT dated 10/20/2018 Findings: Bony alignment is normal. Vertebral body heights are preserved. Disc spaces are preserved. No acute fracture demonstrated. No dislocations. No significant disc bulge or protrusion, spinal stenosis, or neural foraminal stenosis. The included extra spinal soft tissues are unremarkable. The lowest axial cuts demonstrate the superior aspect of the enlarged uterus Impression: Unremarkable exam. No acute bony trauma The CT scanner at [facility] is accredited by the [employer] and the scans are performed using protocols designed to limit radiation exposure to as low as reasonably achievable to attain images of sufficient resolution adequate for diagnostic evaluation.
[2019-08-12] MEDS ORDERED: Ketorolac 30mg Inj ONE (15:51)
[2019-08-12] MEDS ORDERED: DiphenhydrAMINE 50mg/ml Inj ONE (15:52)
[2019-08-12] MEDS ORDERED: Metoclopramide 10mg/2ml Inj ONE (15:53)
[2019-08-12 16:03] VITALS: BP 120/68
--- NOTE | 2019-08-12 16:04 | NUR ---
ED Nurse Note: blood and urine was sent pt medicated on monitor vss.
[2019-08-12 16:08] LABS: BASOPHILS % (AUTO) 1.1 % (0.0-2.0); EOSINOPHILS % (AUTO) 1.7 % (0.0-3.0); HEMATOCRIT 31.7 % (37.0-47.0); HEMOGLOBIN 10.9 G/DL (12.0-16.0); LYMPHOCYTES % (AUTO) 36.5 % (20.0-45.0); MEAN CORPUSCULAR VOLUME 80 FL (80-99); MONOCYTES % (AUTO) 4.8 % (1.0-10.0); NEUTROPHILS % (AUTO) 55.9 % (45.0-75.0); PLATELET COUNT 249 K/UL (150-450); RED BLOOD COUNT 3.96 M/UL (4.20-5.40); RED CELL DISTRIBUTION WIDTH 13.2 % (11.6-14.8); WHITE BLOOD COUNT 8.7 K/UL (4.8-10.8)
[2019-08-12 16:22] LABS: ANION GAP 9 mmol/L (5-15); BLOOD UREA NITROGEN 11 mg/dL (7-18); CALCIUM 8.7 MG/DL (8.5-10.1); CARBON DIOXIDE 25 MMOL/L (21-32); CHLORIDE 108 MMOL/L (98-107); CREATININE 0.7 MG/DL (0.55-1.30); POTASSIUM 3.7 MMOL/L (3.5-5.1); SODIUM 142 MMOL/L (136-145)
[2019-08-12 16:27] LABS: ALANINE AMINOTRANSFERASE 16 U/L (12-78); ALBUMIN 3.3 G/DL (3.4-5.0); ALBUMIN/GLOBULIN RATIO 0.8 (1.0-2.7); ALKALINE PHOSPHATASE 52 U/L (46-116); ASPARTATE AMINO TRANSFERASE 13 U/L (15-37); BILIRUBIN,TOTAL 0.3 MG/DL (0.2-1.0)
--- NOTE | 2019-08-12 16:30 | Emergency Room Report ---
History of Present Illness General Chief Complaint: Vaginal Source: Patient Present Illness HPI Patient presents with 2 days of vaginal bleeding. She is used 6 pads in this period of time. She is passing bright red bleeding bright red blood and some clots. She feels some weakness when she stands. She has a history of fibroids. This began after she pulled the patient and started having back pain. The back pain is more right-sided. Radiates down her right side to her buttock area. She feels numbness in that area. That pain is severe. She denies any weakness in her leg. Her last period ended a week ago. She has had abnormal bleeding in the past related to her fibroid. It is never been this heavy. She denies fevers or chills. She is not taking control and is not on blood thinners. She denies dysuria. Last ultrasound was done over a year ago. She does not believe she has been exposed to sexually transmitted diseases. She has been taking ibuprofen and this helped minimally with the pain. She denies prior injury to her back or evaluation. No sore throat, chest pain, palpitations, nausea, vomiting, diarrhea, shortness of breath, joint pain, rashes, depression, anxiety, visual changes, headache. History of asthma no wheezing. Allergies: Coded Allergies: Shrimp (Verified Allergy, Unknown, 09/01/17) Patient History Past Medical History: see triage record Social History: Denies: smoking Social History Narrative Patient care Last Menstrual Period: 08/03/2019 Reviewed Nursing Documentation: PMH: Agreed; PSxH: Agreed Nursing Documentation-PMH Past Medical History: No History, Except For Hx Asthma: Yes Hx Neurological Problems: Yes - FIBROIDS Review of Systems All Other Systems: negative except mentioned in HPI Physical Exam Vital Signs Date Time Temp Pulse Resp B/P (MAP) Pulse Ox O2 Delivery O2 Flow Rate FiO2 08/12/19 12:07 98.1 82 16 103/70 (81) 96 Room Air Sp02 EP Interpretation: reviewed, normal General Appearance: well appearing, no apparent distress, GCS 15, non-toxic Head: normocephalic Eyes: bilateral eye normal inspection, bilateral eye PERRL, bilateral eye EOMI ENT: moist mucus membranes Neck: supple Respiratory: lungs clear, normal breath sounds Cardiovascular #1: regular rate, rhythm Cardiovascular #2: 2+ radial (R) Gastrointestinal: normal inspection, normal bowel sounds, non tender, no mass, non-distended Genitourinary: no CVA tenderness, deferred - For ultrasound Musculoskeletal: back normal, normal range of motion, gait/station normal Neurologic: alert, oriented x3, grossly normal Psychiatric: mood/affect normal Skin: no rash, normal color, warm/dry Medical Decision Making Diagnostic Impression: Primary Impression: DUB (dysfunctional uterine bleeding) Additional Impressions: Fibroid Lumbar strain Qualified Codes: S39.012A - Strain of muscle, fascia and tendon of lower back , initial encounter ER Course Patient presents with abnormal vaginal bleeding and back pain after straining moving a patient. Differential includes ectopic , , threatened miscarriage, fibroid bleeding, back strain, UTI, renal stone amongst others. Evaluation with ultrasound and CT of the back and labs. The patient will be treated with IV hydration, Toradol, Reglan and Benadryl. Ultrasound with fibroid. White count normal. Minimal anemia. Urinalysis with red cells. Coags normal. Lumbar sacral CT without acute abnormality. Patient with improved pain with treatment. Discussed results. Discussed treatment plan. Patient stable for outpatient observation and treatment. Laboratory Tests Test 08/12/19 12:15 08/12/19 15:35 Urine Color Pale yellow Urine Appearance Cloudy Urine pH 7 (4.5-8.0) Urine Specific [place] 1.015 (1.005-1.035) Urine Protein 1+ (NEGATIVE) H Urine Glucose (UA) Negative (NEGATIVE) Urine Ketones Negative (NEGATIVE) Urine Blood 5+ (NEGATIVE) H Urine Nitrite Negative (NEGATIVE) Urine Bilirubin Negative (NEGATIVE) Urine Urobilinogen Normal MG/DL (0.0-1.0) Urine Leukocyte Esterase 2+ (NEGATIVE) H Urine RBC Tntc /HPF (0 - 2) H Urine WBC 2-4 /HPF (0 - 2) Urine Squamous Epithelial Cells Many /LPF (NONE/OCC) H Urine Bacteria Few /HPF (NONE) Urine HCG, Qualitative Negative (NEGATIVE) White Blood Count 8.7 K/UL (4.8-10.8) Red Blood Count 3.96 M/UL (4.20-5.40) L Hemoglobin 10.9 G/DL (12.0-16.0) L Hematocrit 31.7 % (37.0-47.0) L Mean Corpuscular Volume 80 FL (80-99) Mean Corpuscular Hemoglobin 27.5 PG (27.0-31.0) Mean Corpuscular Hemoglobin Concent 34.2 G/DL (32.0-36.0) Red Cell Distribution Width 13.2 % (11.6-14.8) Platelet Count 249 K/UL (150-450) Mean Platelet Volume 9.7 FL (6.5-10.1) Neutrophils (%) (Auto) 55.9 % (45.0-75.0) Lymphocytes (%) (Auto) 36.5 % (20.0-45.0) Monocytes (%) (Auto) 4.8 % (1.0-10.0) Eosinophils (%) (Auto) 1.7 % (0.0-3.0) Basophils (%) (Auto) 1.1 % (0.0-2.0) Prothrombin Time 10.3 SEC (9.30-11.50) Prothrombin Time INR 1.0 (0.9-1.1) PTT 27 SEC (23-33) Sodium Level 142 MMOL/L (136-145) Potassium Level 3.7 MMOL/L (3.5-5.1) Chloride Level 108 MMOL/L (98-107) H Carbon Dioxide Level 25 MMOL/L (21-32) Anion Gap 9 mmol/L (5-15) Blood Urea Nitrogen 11 mg/dL (7-18) Creatinine 0.7 MG/DL (0.55-1.30) Estimate Glomerular Filtration Rate > 60 mL/min (>60) Glucose Level 82 MG/DL (74-106) Calcium Level 8.7 MG/DL (8.5-10.1) Total Bilirubin 0.3 MG/DL (0.2-1.0) Aspartate Amino Transferase (AST) 13 U/L (15-37) L Alanine Aminotransferase (ALT) 16 U/L (12-78) Alkaline Phosphatase 52 U/L (46-116) Total Protein 7.5 G/DL (6.4-8.2) Albumin 3.3 G/DL (3.4-5.0) L Globulin 4.2 g/dL Albumin/Globulin Ratio 0.8 (1.0-2.7) L Lipase 91 U/L (73-393) Last Vital Signs Date Time Temp Pulse Resp B/P (MAP) Pulse Ox O2 Delivery O2 Flow Rate FiO2 08/12/19 17:00 98.2 79 16 120/68 100 Room Air Status: improved Disposition: HOME, SELF-CARE Condition: Improved Scripts Acetaminophen (Tylenol) 325 Mg Tablet 650 MG ORAL Q6H PRN for Prn Pain/Headache/Temp > 101, #20 TAB 0 Refills Prov: Rangel Tineo MD 08/12/19 Methocarbamol* (ROBAXIN-500*) 500 Mg Tablet 500 MG ORAL TID PRN for For Pain, #10 TAB 0 Refills Prov: Rangel Tineo MD 08/12/19 Tramadol Hcl* (ULTRAM*) 50 Mg Tablet 50 MG ORAL Q6H PRN for For Pain, #10 TAB 0 Refills Prov: Rangel Tineo MD 08/12/19 Rangel Tineo MD Aug 12, 2019 16:30
[2019-08-12] MEDS ORDERED: ROBAXIN-500MG ORAL (16:33)
[2019-08-12] MEDS ORDERED: TRAMADOL HCL50 MG ORAL (16:33)
[2019-08-12] MEDS ORDERED: TYLENOL325 MG ORAL (16:33)
[2019-08-12 17:00] VITALS: BP 120/68
--- NOTE | 2019-08-12 17:00 | NUR ---
ED Nurse Note: Pt cleared by health care Provider for discharge. DC instructions/prescription was given and explained to pt and verbalized understanding of teachings. All medical deviecs such as ID band removed. Pt is AAO x4, ambulatory and left with all personal belongings.
== END 2019-08-12 17:00 | disposition home or self-care (01) ==
LOC: EMR 16:32
DX: N93.8 Other specified abnormal uterine and vaginal bleeding (principal); D25.9 Leiomyoma of uterus, unspecified; S33.5XXA Sprain of ligaments of lumbar spine, initial encounter; J45.909 Unspecified asthma, uncomplicated; X50.0XXA Overexertion from strenuous movement or load, initial encounter; Y93.9 Activity, unspecified; Y92.9 Unspecified place or not applicable; Z91.013 Allergy to seafood
CPT/HCPCS: 36415; 72131; 76830; 76856; 80053; 81003; 81025; 83690; 85025; 85610; 85730; 86850; 86900; 86901; 96361; 96374; 96375; J1200; J1885; J2765; J7030; Z7502; 99284

== ENCOUNTER 2019-10-11 10:34 | Emergency (ER) | payer MEDICAID ==
[~2019-10-11] VITALS: Ht 167.6 cm; Wt 90.7 kg
[~2019-10-11 10:34] MED LIST changes: +ROBAXIN-500MG ORAL
[2019-10-11] MEDS ORDERED: Ketorolac 60mg Inj IM ONE (11:15)
--- NOTE | 2019-10-11 11:19 | Emergency Room Report ---
History of Present Illness General Chief Complaint: Lower Extremity Injury Source: Patient Present Illness HPI Patient is a 28-year-old female denies any significant past medical history who presents to the ER complaining of left knee pain. Patient states that she was moving furniture yesterday when she lost her balance slipped and fell twisting her left knee. She states that she is twisted her left knee in the past. She thinks she might have dislocated her kneecap yesterday. Patient states the pain is worse with ambulation. Patient states that she tried icing and elevating it. She states that she took Advil yesterday with some relief but has not taken any pain medicine today. Patient denies any head trauma or loss of consciousness. Patient states that there is no possibility of her being . Patient denies any chest pain or shortness of breath. she denies any abdominal pain, nausea or vomiting. Allergies: Coded Allergies: Shrimp (Verified Allergy, Unknown, 09/01/17) Patient History Last Menstrual Period: 09/22/2019 Now: No Reviewed Nursing Documentation: PMH: Agreed; PSxH: Agreed Nursing Documentation-PMH Past Medical History: No History, Except For Hx Asthma: Yes Hx Neurological Problems: Yes - FIBROIDS Review of Systems All Other Systems: negative except mentioned in HPI Physical Exam Vital Signs Date Time Temp Pulse Resp B/P (MAP) Pulse Ox O2 Delivery O2 Flow Rate FiO2 10/11/19 10:47 98.1 15 15 108/79 (89) 98 Room Air Sp02 EP Interpretation: reviewed, normal General Appearance: alert, GCS 15, non-toxic, mild distress Head: normocephalic, atraumatic Eyes: bilateral eye normal inspection, bilateral eye PERRL ENT: hearing grossly normal, normal pharynx, no angioedema, normal voice Neck: full range of motion, supple/symm/no masses Respiratory: chest non-tender, lungs clear, normal breath sounds, speaking full sentences Cardiovascular #1: regular rate, rhythm, no edema Gastrointestinal: normal bowel sounds, non tender, soft, non-distended, no guarding, no rebound Musculoskeletal: other - L knee mild diffuse ttp, painful ROM, 2+ dp pulses, non-erythematous extremity, NV intact Neurologic: alert, motor strength/tone normal, oriented x3, sensory intact, responsive, speech normal Psychiatric: judgement/insight normal, memory normal, mood/affect normal, no suicidal/homicidal ideation Skin: no rash, warm/dry Lymphatic: no adenopathy Medical Decision Making ER Course Patient given 30 mg IM Toradol for pain relief she complained of mild improvement in pain. Patient also given 1 5/325 [place]. X-ray demonstrates no acute fracture. Patient given crutches and knee immobilizer. Patient states that she will call her insurance for orthopedic follow-up and possible MRI for ligamentous injury. After discussing risks and benefits of further diagnostics , treatment plans, as well as indications for and risks of admission, the patient is agreeable to being discharged home. I have explained that their evaluation and treatment in the emergency department today is an important step towards them achieving better health but that their evaluation today is not intended to replace further evaluation and treatment by a physician in their local clinic. I have explained that while the current findings suggest no immediate life threatening emergency they will require further evaluation and treatment by a physician of their choice in their area. They understand that it will be necessary for them to review the final reports of their ED visit with their clinic physician. We have reviewed indications for return to the Emergency Department. I have explained that additional time may need to pass and/or additional testing as an outpatient may be necessary before a definitive diagnosis can be made. They tell me they are willing to follow up as instructed within the timeframe I recommend. They appear to understand what we discussed. Additionally they understand that if they are unable to be seen by an outpatient physician they are welcome, and in fact should, return to the Emergency Department for a repeat evaluation. The patient is stable at time of discharge. Last Vital Signs Date Time Temp Pulse Resp B/P (MAP) Pulse Ox O2 Delivery O2 Flow Rate FiO2 10/11/19 10:47 98.1 15 15 108/79 (89) 98 Room Air Status: improved Condition: Stable Scripts Hydrocodone Bit/Acetaminophen 5-325* (NORCO 5-325*) 1 Each Tablet 1 TAB ORAL Q6H PRN for For Pain, #10 TAB 0 Refills Prov: Dorie García M.D. 10/11/19 Naproxen* (NAPROSYN*) 250 Mg Tablet 250 MG ORAL TID PRN for For Pain, #20 TAB 0 Refills Prov: Dorie García M.D. 10/11/19 Dorie García M.D. Oct 11, 2019 11:19
[2019-10-11] MEDS ORDERED: Ketorolac 30mg Inj IM ONE (11:30)
--- NOTE | 2019-10-11 11:37 | NUR ---
ED Nurse Note:pt relates was moving boxes yest and left knee gave out from under her. now very painful ambulation. moved to bed and ice pack applied with elevation.
[2019-10-11] MEDS ORDERED: NAPROXEN250 MG ORAL (12:43)
[2019-10-11] MEDS ORDERED: NORCO 5-325 TA1 EACH ORAL (12:54)
[2019-10-11] MEDS ORDERED: HYDROcodone/Acetamin 5/325 tab ORAL ONE (13:00)
--- NOTE | 2019-10-11 13:31 | Diagnostic Imaging Report ---
INDICATION: Knee Pain COMPARISON: None 3 views of the left knee were obtained. FINDINGS: No acute fracture, malalignment, or joint effusion are identified. Impression: Negative for acute injury
--- NOTE | 2019-10-11 13:50 | NUR ---
ER DISCHARGE NOTE: Patient is cleared to be discharged per ERMD, pt is aox4, on room air, with stable vital signs. pt was given dc and prescription instructions, pt was able to verbalize understanding, pt id band removed. pt is able to ambulate with steady gait. pt took all belongings. Pt has knee imobilizer in place and crutches.
[2019-10-11 13:54] VITALS: BP 114/82
== END 2019-10-11 13:15 | disposition home or self-care (01) ==
LOC: EMR 11:30
DX: S83.92XA Sprain of unspecified site of left knee, initial encounter (principal); J45.909 Unspecified asthma, uncomplicated; W01.0XXA Fall on same level from slipping, tripping and stumbling without subsequent striking against object, initial encounter; Y92.9 Unspecified place or not applicable
CPT/HCPCS: 29505; 73562; 96372; J1885; Z7502; 99283

== ENCOUNTER 2020-01-26 21:52 | Emergency (ER) | payer MEDICAID ==
[~2020-01-26] VITALS: Ht 167.6 cm; Wt 90.7 kg
[~2020-01-26 21:52] MED LIST changes: +NAPROXEN250 MG ORAL; +NORCO 5-325 TA1 EACH ORAL
[2020-01-26 22:06] VITALS: BP 112/78
[2020-01-26 22:15] LABS: APPEARANCE,URINE CLOUDY; BILIRUBIN, URINE NEGATIVE (NEGATIVE); COLOR,URINE RED; GLUCOSE, URINE (UA) NEGATIVE (NEGATIVE); KETONES,URINE 1+ (NEGATIVE); LEUKOCYTE ESTERASE ,URINE 3+ (NEGATIVE); NITRITE,URINE NEGATIVE (NEGATIVE); PH,URINE 5 (4.5-8.0); PROTEIN,URINE 3+ (NEGATIVE); UROBILINOGEN,URINE 1 MG/DL (0.0-1.0)
[2020-01-26] MEDS ORDERED: Morphine Sulfate 4mg/ml Inj (IV USE ONLY) IVP ONE (22:15)
[2020-01-26] MEDS ORDERED: DiphenhydrAMINE 50mg/ml Inj IVP ONE (22:15)
[2020-01-26] MEDS ORDERED: Metoclopramide 10mg/2ml Inj IVP ONE (22:15)
--- NOTE | 2020-01-26 22:19 | Emergency Room Report ---
History of Present Illness General Chief Complaint: Abdominal Pain Source: Patient Present Illness HPI Patient presents with 2 days of lower abdominal pain. Is been increasing. She has passed large blood clots yesterday. She was seen at [facility] and they start IV and did some labs but no studies. They said that there were no problems. She was given medication by them. The pain is persisted. She has been taking [place], Motrin, Tylenol at home. She vomited yesterday. She still feels somewhat nauseated. She does not believe she is at this time. Her last menstruation was January 10 and normal for her. She says she has a history of fibroids. She is never had pain of this type in this severe with problems in the past. She feels dizzy when she stands. She denies any fevers or chills. She also complains of dysuria. She denies any flank pain. She has had urinary tract infections in the past. No sore throat, chest pain, palpitations, diarrhea, shortness of breath, joint pain, rashes, depression, anxiety, visual changes, headache. Allergies: Coded Allergies: Shrimp (Verified Allergy, Unknown, 09/01/17) COVID-19 Screening Contact w/high risk pt: No Recent Travel to affected area: No Experienced COVID-19 symptoms?: No COVID-19 Testing performed TOE PUNCHER: No Patient History Past Medical History: see triage record Social History Narrative Has a 7-year-old at home Last Menstrual Period: 01/11/20 Now: No - chance : 2 Para: 1 Reviewed Nursing Documentation: PMH: Agreed; PSxH: Agreed Nursing Documentation-PMH Past Medical History: No History, Except For Hx Asthma: Yes Hx Neurological Problems: Yes - FIBROIDS Review of Systems All Other Systems: negative except mentioned in HPI Physical Exam Vital Signs Date Time Temp Pulse Resp B/P (MAP) Pulse Ox O2 Delivery O2 Flow Rate FiO2 01/26/20 21:54 98.4 97 17 115/76 (89) 99 Room Air General Appearance: mild distress - Pain Eyes: bilateral eye normal inspection, bilateral eye PERRL, bilateral eye EOMI ENT: moist mucus membranes Neck: full range of motion, supple Respiratory: no respiratory distress Cardiovascular #1: regular rate, rhythm Cardiovascular #2: 2+ radial (R) Gastrointestinal: soft, no rebound, guarding - Minimal, tenderness - Suprapubic and left lower quadrant Genitourinary: no CVA tenderness Musculoskeletal: back normal Neurologic: oriented x3, grossly normal Psychiatric: mood/affect normal - In pain Skin: warm/dry, other - No pallor Medical Decision Making Diagnostic Impression: Primary Impression: Pelvic pain Additional Impression: Vaginal bleeding ER Course Patient presents with suprapubic pain and vaginal bleeding. Differential includes ectopic , threatened miscarriage, fibroid UTI amongst others. Patient will be evaluated with labs and ultrasound. Patient treated with IV hydration and Reglan, Benadryl and morphine. Patient received pain medication and was feeling better. She came to the emergency department desk and said she had to leave to take care of her 7-year- old son. I stated that she had risk of from bleeding or possible tubal . She states she understood the risks but that her son is ill and needs her at this time. She was invited to return to the hospital when her son is stabilized to complete evaluation. Labs significant for anemia and negative test. There is some pyuria but mostly there was vaginal blood mixed with the sample. Labs reviewed after the patient left. Laboratory Tests Test 01/26/20 22:00 01/26/20 22:02 White Blood Count 9.8 K/UL (4.8-10.8) Red Blood Count 3.72 M/UL (4.20-5.40) L Hemoglobin 9.2 G/DL (12.0-16.0) L Hematocrit 30.5 % (37.0-47.0) L Mean Corpuscular Volume 82 FL (80-99) Mean Corpuscular Hemoglobin 24.8 PG (27.0-31.0) L Mean Corpuscular Hemoglobin Concent 30.3 G/DL (32.0-36.0) L Red Cell Distribution Width 16.2 % (11.6-14.8) H Platelet Count 291 K/UL (150-450) Mean Platelet Volume 9.8 FL (6.5-10.1) Neutrophils (%) (Auto) 62.3 % (45.0-75.0) Lymphocytes (%) (Auto) 31.3 % (20.0-45.0) Monocytes (%) (Auto) 4.3 % (1.0-10.0) Eosinophils (%) (Auto) 1.5 % (0.0-3.0) Basophils (%) (Auto) 0.6 % (0.0-2.0) Prothrombin Time 11.0 SEC (9.30-11.50) Prothrombin Time INR 1.0 (0.9-1.1) Activated Partial Thromboplast Time 26 SEC (23-33) Sodium Level 141 MMOL/L (136-145) Potassium Level 3.5 MMOL/L (3.5-5.1) Chloride Level 106 MMOL/L (98-107) Carbon Dioxide Level 24 MMOL/L (21-32) Anion Gap 11 mmol/L (5-15) Blood Urea Nitrogen 12 mg/dL (7-18) Creatinine 0.8 MG/DL (0.55-1.30) Estimated Glomerular Filtration Rate > 60 mL/min (>60) Glucose Level 93 MG/DL (74-106) Calcium Level 8.8 MG/DL (8.5-10.1) Total Bilirubin 0.2 MG/DL (0.2-1.0) Aspartate Amino Transferase (AST) 12 U/L (15-37) L Alanine Aminotransferase (ALT) 22 U/L (12-78) Alkaline Phosphatase 65 U/L (46-116) Total Protein 7.4 G/DL (6.4-8.2) Albumin 3.3 G/DL (3.4-5.0) L Globulin 4.1 g/dL Albumin/Globulin Ratio 0.8 (1.0-2.7) L Lipase 85 U/L (73-393) Urine Color Red Urine Appearance Cloudy Urine pH 5 (4.5-8.0) Urine Specific [place] 1.025 (1.005-1.035) Urine Protein 3+ (NEGATIVE) H Urine Glucose (UA) Negative (NEGATIVE) Urine Ketones 1+ (NEGATIVE) H Urine Blood 5+ (NEGATIVE) H Urine Nitrite Negative (NEGATIVE) Urine Bilirubin Negative (NEGATIVE) Urine Urobilinogen 1 MG/DL (0.0-1.0) H Urine Leukocyte Esterase 3+ (NEGATIVE) H Urine RBC Tntc /HPF (0 - 2) H Urine WBC 10-15 /HPF (0 - 2) H Urine Squamous Epithelial Cells Moderate /LPF (NONE/OCC) H Urine Bacteria Few /HPF (NONE) Urine HCG, Qualitative Negative (NEGATIVE) Status: improved Disposition: AGAINST MEDICAL ADVICE Condition: Unknown Rivka,Rangel MD January 26, 2020 22:19
[2020-01-26 22:39] LABS: BASOPHILS % (AUTO) 0.6 % (0.0-2.0); EOSINOPHILS % (AUTO) 1.5 % (0.0-3.0); HEMATOCRIT 30.5 % (37.0-47.0); HEMOGLOBIN 9.2 G/DL (12.0-16.0); LYMPHOCYTES % (AUTO) 31.3 % (20.0-45.0); MEAN CORPUSCULAR VOLUME 82 FL (80-99); MONOCYTES % (AUTO) 4.3 % (1.0-10.0); NEUTROPHILS % (AUTO) 62.3 % (45.0-75.0); PLATELET COUNT 291 K/UL (150-450); RED BLOOD COUNT 3.72 M/UL (4.20-5.40); RED CELL DISTRIBUTION WIDTH 16.2 % (11.6-14.8); WHITE BLOOD COUNT 9.8 K/UL (4.8-10.8)
[2020-01-26 22:51] LABS: ANION GAP 11 mmol/L (5-15); BLOOD UREA NITROGEN 12 mg/dL (7-18); CALCIUM 8.8 MG/DL (8.5-10.1); CARBON DIOXIDE 24 MMOL/L (21-32); CHLORIDE 106 MMOL/L (98-107); CREATININE 0.8 MG/DL (0.55-1.30); POTASSIUM 3.5 MMOL/L (3.5-5.1); SODIUM 141 MMOL/L (136-145)
[2020-01-26 22:55] LABS: ALANINE AMINOTRANSFERASE 22 U/L (12-78); ALBUMIN 3.3 G/DL (3.4-5.0); ALBUMIN/GLOBULIN RATIO 0.8 (1.0-2.7); ALKALINE PHOSPHATASE 65 U/L (46-116); ASPARTATE AMINO TRANSFERASE 12 U/L (15-37); BILIRUBIN,TOTAL 0.2 MG/DL (0.2-1.0)
== END 2020-01-26 22:41 | disposition left against medical advice (07) ==
LOC: EMR 22:15
DX: R10.2 Pelvic and perineal pain (principal); N93.9 Abnormal uterine and vaginal bleeding, unspecified; R30.0 Dysuria; Z91.013 Allergy to seafood; D64.9 Anemia, unspecified
CPT/HCPCS: 36415; 80053; 81003; 81025; 83690; 85025; 85610; 85730; 87086; 96374; 96375; J1200; J2270; J2765; J7030; Z7502; 99284

== ENCOUNTER 2020-09-18 23:25 | Emergency (ER) | payer MEDICAID ==
[~2020-09-18] VITALS: Ht 165.1 cm; Wt 89.8 kg
[~2020-09-18 23:25] MED LIST changes: +KLOR-CON 1010 MEQ ORAL; +METRONIDAZOLE500 MG ORAL
[2020-09-18 23:45] VITALS: BP 118/85
[2020-09-18] MEDS ORDERED: HYDROcodone/Acetamin 5/325 tab ORAL ONE (23:45)
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
[2020-09-19] MEDS ORDERED: HYDROmorphone 1mg/ml Carpuject IM ONE
--- NOTE | 2020-09-19 | NUR ---
ED Nurse Note: Pt refused oral norco for pain, states took earlier today and yesterday with no relief, MD informed and pt medicated with dilaudid IM, will monitor for effectiveness, pt is being taken to imaging dept, pt refused to urinate states cant, pt signed form to do x-ray and not .
[2020-09-19 00:50] VITALS: BP 121/78
[2020-09-19] MEDS ORDERED: PERCOCET 5-3251 EACH ORAL (00:52)
[2020-09-19] MEDS ORDERED: IBUPROFEN600 M1 ORAL (00:52)
[2020-09-19 01:05] VITALS: BP 121/78
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
--- NOTE | 2020-09-19 01:32 | Diagnostic Imaging Report ---
EXAM: XR Bilateral Hips With Pelvis When Performed, 2 Views CLINICAL HISTORY: TRAUMA TECHNIQUE: Frontal view of the bilateral hips with pelvis when performed. COMPARISON: No relevant prior studies available. FINDINGS: Bones/joints: There is diastases at the pubic symphysis. The joint is widened up to 2.9 cm in transverse dimension. There is no acute fracture. No dislocation. Soft tissues: Unremarkable. 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 No acute fracture. <MYCVCSECTION> Communications: 09/19/20 01:34 Call Doctor Regarding Trauma, called Jimmy Villagomez MD on 09/19 01:34 (-08:00)
--- NOTE | 2020-09-19 03:57 | Diagnostic Imaging Report ---
EXAM: XR Right Shoulder Complete, 2 or More Views CLINICAL HISTORY: TRAUMA TECHNIQUE: Two or more views of the right shoulder. COMPARISON: No relevant prior studies available. FINDINGS: Bones/joints: Unremarkable. No acute fracture. No dislocation. Soft tissues: Unremarkable. IMPRESSION: No acute abnormality.
== END 2020-09-19 01:05 | disposition home or self-care (01) ==
LOC: EMR 23:49
DX: S20.211A Contusion of right front wall of thorax, initial encounter (principal); S43.401A Unspecified sprain of right shoulder joint, initial encounter; S30.0XXA Contusion of lower back and pelvis, initial encounter; J45.909 Unspecified asthma, uncomplicated; Y04.2XXA Assault by strike against or bumped into by another person, initial encounter; Y93.9 Activity, unspecified; Y92.9 Unspecified place or not applicable; Z91.013 Allergy to seafood
CPT/HCPCS: 71101; 73030; 73521; 96372; J1170; Z7502; 99284